=== PATIENT | male | born 1955 | race Asian ===

== ENCOUNTER 2024-11-02 17:29 | Inpatient (IN) | payer MEDICARE, MEDICAID, SELFPAY ==
[2024-11-02] VITALS (42 sets, daily range): BP systolic 125–244; BP diastolic 70–190; PULSE 60–147; RESP 15–48; TEMP 35.6; O2SAT 97–100; BMI 28.3
--- NOTE | 2024-11-02 17:31 | PC.NURSE ---
PT BROUGHT IN BY EMS A STAT MEDICAL FOR ALTERED MENTAL STATUS. PER EMS FAMILY CALLED DUE TO PT BECOMING CONFUSED, COMPLAINED OF DIZZINESS AND VOMITING WHILE TAKING A SHOWER. ESTIMATED LAST KNOW WELL BY EMS WAS 1645. EMS STATED THAT PT WAS INITIALLY A GCS OF 13 ON THEIR ARRIVAL AND BECAME A GCS OF 3. PT WAS GIVEN NARCAN IN ROUTE WITH NO IMPROVEMENT OF MENTAL STATUS. BP WAS ELEVATED IN ROUTE PER EMS AT 212/76. ON ARRIVAL PT IS NON VERBAL BUT IS MOVING HIS ARMS AROUND AND BEGAN DRY HEAVING. DR GILL AT BEDSIDE.
--- NOTE | 2024-11-02 17:34 | XR_ITS ---
Examination: CT brain head without contrast. 2-D sagittal coronal reconstructions Date and time of exam:November 02, 2024 1759 hrs. Indications: Stroke alert, onset focal neurologic deficit today CTDI: vol (mGy):51.9 DLP: (mGycm):1029 Technique: Multiple CT axial sections of the brain have been obtained, 5 mm slice thickness. Contrast has not been administered. 2-D sagittal, coronal reconstructions have been obtained Low dose protocols were performed. One or more of the following dose reduction techniques were used; automated exposure control, adjustment of the mA and/or KV according to patient size, use of iterative reconstruction technique. Findings: No significant ventricular enlargement. 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 No mass effect or midline shift Basal cisterns are not remarkable. Fourth ventricle is midline. Cranial vault intact. Impression: Negative for acute hemorrhage, mass effect or midline shift
[2024-11-02] MEDS: ETOMIDATE INJ 2 MG/ML VIAL 10 ML 20 MG IVP (17:38)
[2024-11-02] MEDS: ROCURONIUM INJ 10 MG/ML VIAL 10 ML 70 MG IVP (17:38)
--- NOTE | 2024-11-02 17:38 | XR_ITS ---
Examination: AP chest single view Technique: AP portable supine chest single view Indications: Stroke alert, altered mental status, hypoxic respiratory failure, postintubation Exam date and time: November 02, 2024 1741 hrs. Findings: Mild prominence of ventricle Mild to moderate vascular congestion. Endotracheal tube tip 25 mm above radha. Orogastric tube in the stomach satisfactory position No aspiration pneumonia or pulmonary edema Impression: Endotracheal tube tip 25 mm above radha Mild to moderate vascular congestion No aspiration pneumonia
--- NOTE | 2024-11-02 17:40 | PC.NURSE ---
UNABLE TO PERFORM NIH ON PT DUE TO PT BEING INTUBATED AND SEDATED
--- NOTE | 2024-11-02 17:53 | PC.NURSE ---
ET TUBE PULLED TO 23 AT GUM BY RESPIRATORY PER DR GILL'S ORDERS
--- NOTE | 2024-11-02 17:55 | EDRME_ITS ---
Rapid Medical Screening Exam RME Arrival date/time: 11/02/24 17:29 Chief Complaint: Altered Mental Status Time Seen by Provider: 11/02/24 17:34 Vital signs: Vital Signs Pulse Rate 85 11/02/24 17:29 Respiratory Rate 18 11/02/24 17:29 Blood Pressure 206/162 H 11/02/24 17:29 Pulse Oximetry (%) 100 11/02/24 17:29 Oxygen Delivery Method Oxy Mask 11/02/24 17:29 Oxygen Flow Rate 15 11/02/24 17:29 RME Narrative: Patient stat arrival to the ER obtunded. Patient was coming out of the shower where he noticed severe and profound dizziness. By EMS arrival he was signifi cantly and severely hypertensive and increasingly obtunded. He has got deviation to the right. He is also actively vomiting. Patient was intubated for airway protection and has critically high blood pressures concerning for an intracerebral hemorrhage. He will require stat CT of the brain. And if confirms intracerebral hemorrhage will require aggressive blood pressure management. Signed out to oncoming provider pending head CT, med critical management, and final disposition.
--- NOTE | 2024-11-02 17:55 | PC.NURSE ---
PT BP 222/90. PER DR GILL TAKE PT TO CT PRIOR TO STARTING MEDICATIONS FOR HIGH BP
--- NOTE | 2024-11-02 17:56 | PD.EDADDENDU ---
Emergency Room Addendum Addendum Narrative: Procedure note; endotracheal intubation: Emergent consent due to critical status, altered mental status unable to consent. RSI: Etomidate 20 mg, rocuronium 70 mg with good sedation Using fiberoptic laryngoscopy, full ET tubes complete vocal cords at 100% were visualized and 8 oh tube was seen passing through the vocal cords. Condensation and CO2 color change x 3 thank you. Breath sounds equal bilaterally, no breath sounds in the epigastrium. Tube secured at 24 cm at the lip. Chest x-ray for tube placement is pending. Estimated blood loss: 0 Complications: 0
--- NOTE | 2024-11-02 17:57 | PC.NURSE ---
PT TO CT
[2024-11-02 18:00] LABS: Basophils # (Auto) 0.1 Thou/mm3 (0.0-0.2); Basophils % (Auto) 1 % (0-2.5); Eosinophils # (Auto) 0.9 Thou/mm3 (0.0-0.5); Eosinophils % (Auto) 8 % (0-10); Hematocrit 43.2 % (41.0-53.0); Hemoglobin 14.6 g/dL (13.5-16.0); Immature Granulocytes % (Auto) 1 % (0-0); Immature Granulocytes Auto 0.09 Thou/mm3 (0.00-0.00); Lymphocytes # (Auto) 5.9 Thou/mm3 (1.0-4.8); Lymphocytes % (Auto) 53 % (10-50); Mean Corpuscular HGB Conc 33.8 g/dl (31.0-37.0); Mean Corpuscular Hemoglobin 28.9 pg (25.0-35.0); Mean Corpuscular Volume 86 fL (80-100); Monocytes # (Auto) 0.9 Thou/mm3 (0.0-0.8); Monocytes % (Auto) 8 % (0-12); Neutrophils # (Auto) 3.3 Thou/mm3 (1.8-7.7); Neutrophils % (Auto) 30 % (37-80); Nucleated Red Blood Cell % 0 /100 WBC (0); Platelet Count 248 Thou/mm3 (140-440); RDW Standard Deviation 41.6 fL (35.1-43.9); Red Blood Count 5.05 Miln/mm3 (4.50-5.90); White Blood Count 11.2 Thou/mm3 (3.8-10.6)
[2024-11-02 18:03] LABS: Collection Type, Urine Catheter; Squamous Epithelial Cell,Urine 0 /hpf (0-5)
--- NOTE | 2024-11-02 18:04 | PC.NURSE ---
PT BACK FROM CT
--- NOTE | 2024-11-02 18:06 | PC.NURSE ---
TELE DIVYA SHANNON ON TO SEE PT
--- NOTE | 2024-11-02 18:10 | PC.NURSE ---
PER SON PT WAS FINE PRIOR TO GOING INTO THE SHOWER AT 1610. SON STATES THAT PT WAS IN THE SHOWER AND BEGAN YELLING THAT HE NEEDED HELP. SON STATED THAT PT C/O ABD PAIN AND BEGAN VOMITING AND SEEMED CONFUSED. PT WAS SAT DOWN ON COUCH PER SON AND THEY CALLED EMS AT THAT TIME.
--- NOTE | 2024-11-02 18:10 | PD.EDAMS ---
Altered Mental Status RME/HPI General Chief Complaint: Altered Mental Status Stated Complaint: ALTERED Time Seen by Provider: 11/02/24 17:34 Arrival date/time: 11/02/24 17:29 RME / HPI RME / HPI narrative: Patient stat arrival to the ER obtunded. Patient was coming out of the shower where he noticed severe and profound dizziness. By EMS arrival he was significantly and severely hypertensive and increasingly obtunded. He has got deviation to the right. He is also actively vomiting. Patient was intubated for airway protection and has critically high blood pressures concerning for an intracerebral hemorrhage. He will require stat CT of the brain. And if confirms intracerebral hemorrhage will require aggressive blood pressure management. Signed out to oncoming provider pending head CT, med critical management, and final disposition. ------ Dr. Bhatia?s Main ED Evaluation: 69yo male with pmhx Alzheimer's, DM, HTN, HLD BIBA from home presents to the ED for a chief complaint of AMS. Patient was intubated by the previous ED physician, Dr. Hawk. Patient's son and his state the patient was his usual self when they got home at 1600, reporting he was playing with their kids. Son states the patient went to go shower at [id number], when he heard the patient calling out for help. He found the patient crawling out of the restroom and was complaining of abdominal pain and generalized weakness. Son's states she found vomit in the bathroom. They sat the patient down in a chair and noticed the patient was slumped over to his right side, so they called EMS. Full ROS is unobtainable due to the patient's AMS. Related Data Home Medications ?Medication ?Instructions ?Recorded ?Confirmed metformin 500 mg tablet 500 mg PO DAILY 11/15/19 01/04/21 losartan 100 mg tablet 100 mg PO DAILY 01/04/21 01/04/21 meloxicam 15 mg tablet 7.5 mg PO BID 01/04/21 11/02/24 metoprolol succinate 50 mg 50 mg PO BID 01/04/21 11/02/24 tablet,extended release 24 hr rosuvastatin 5 mg tablet 40 mg PO DAILY 01/04/21 11/02/24 amlodipine 10 mg tablet 10 mg PO QDAY 11/02/24 11/02/24 clonidine HCl 0.1 mg tablet 0.1 mg PO BID 11/02/24 11/02/24 hydralazine 50 mg tablet 50 mg PO QDAY 11/02/24 11/02/24 oxybutynin chloride 5 mg tablet 5 mg PO BID 11/02/24 11/02/24 pantoprazole 40 mg tablet,delayed 40 mg PO QDAY 11/02/24 11/02/24 release Allergies Allergy/AdvReac Type Severity Reaction Status Date / Time No Known Allergies Allergy Verified 01/04/21 05:57 Review of Systems Review of Systems ROS Unobtainable: unobtainable due to medical condition Past Medical History Past Medical History NEUROLOGIC: Positive Alzheimer's Disease; Negative Neurological Disorders or Seizures CARDIAC: Positive Cardiac Disorders, Hypercholesterolemia (TAKES MED) and Hypertension (TAKES MED); Negative Congestive Heart Failure, Edema, Cellulitis or Varicose Veins RESPIRATORY: Negative Chronic Obstructive Pulmonary Disease (COPD), Tuberculosis or Sleep Apnea GASTROINTESTINAL: Negative Gastrointestinal Disorders or Hepatitis GENITOURINARY: Negative Genitourinary Disorders or Renal Disease MUSCULOSKELETAL: Positive Musculoskeletal Disorders and Arthritis ENDOCRINE: Positive Endocrine Disorders and Diabetes Mellitus Type 2 (TAKES PO MED); Negative Diabetes Mellitus Type 1 HEMATOLOGIC: Negative Blood Disorders OTHER HISTORY: Negative Hospitalization, Shingles, Falls, Blood Transfusions, Blood Transfusion Reaction, Anesthesia Reactions, Chemotherapy, Radiation Therapy, Chicken Pox, Measles, Mumps or Cancer Surgical History SURGICAL: Negative Pacemaker Social History SMOKING STATUS: Unknown if ever smoked ED Exam Narrative Physical exam: GENERAL APPEARANCE: patient is unable to participate in the exam due to being intubated VITALS: All vitals were reviewed and the pulse ox is 100% via mechanical ventilation, which is abnormal according to my interpretation. HEENT: Normocephalic, atraumatic; pupils equal, round, reactive to light; EOMI; mucous membranes pink, moist; oropharynx clear NECK: Supple LUNGS: CTABL; no wheezes, no rales, no rhonchi HEART: Regular rate, regular rhythm; no murmurs ABDOMEN: non distended; no rigidity BACK: no CVA tenderness EXTREMITIES: atraumatic; no edema NEUROLOGIC: intubated; paralyzed SKIN: warm, dry, normal color; no rashes Course Course Course Narrative: CXR is ordered for post intubation. 1826: Hydralazine 10mg ordered. 1833: Patient is now heading back to radiology for the CTA. 185: Patient's current blood pressure is 244/105 with a HR in the 120s. Nicardipine drip ordered. Aiming for a systolic blood pressure of 220 until the CTA comes back. 1924: Patient is now beginning to move and is tachycardic in the 140s. Discontinued the nicardipine drip. Propofol ordered. 1938: I spoke with the patient's son regarding our current findings. After having an extensive discussion with the patient's sons, they decided to not have thrombolytics given. Quality Measures Suspected type of Stroke: Unknown at this time Tenecteplase given: Reason(s) TPA not given: Refusal not given stroke Orders Category Date Time Status 24 HR Medical Restraints Q2HR Care 11/02/24 18:[address] Screening NOW Care 11/02/24 18:21 Active Johnson [Urinary Catheter] QS Care 11/02/24 17:43 Active Insert IV NOW Care 11/02/24 18:03 Active Insert NG / OG tube NOW Care 11/02/24 17:44 Active Intubation NOW Care 11/02/24 17:34 Completed Intubation NOW Care 11/02/24 17:46 Completed Miscellaneous Nursing Order NOW Care 11/02/24 19:[address] angio stroke protocol Stat Exams 11/02/24 18:[address] chest abdomen pelvis w Stat Exams 11/02/24 18:[address] head/brain wo con Stat Exams 11/02/24 17:34 Completed XR chest 1V post procedure Stat Exams 11/02/24 17:38 Completed Alcohol, Blood Medical Stat Lab 11/02/24 17:37 Completed Arterial Blood Gas Stat Lab 11/02/24 18:25 Completed CBC Stat Lab 11/02/24 17:37 Completed CMP [Comprehensive Metabolic Panel] Stat Lab 11/02/24 17:37 Completed Drug Screen,Urine Stat Lab 11/02/24 17:52 Completed PT [Prothrombin Time with INR] Stat Lab 11/02/24 17:37 Completed PTT [Partial Thromboplastin Time] Stat Lab 11/02/24 17:37 Completed Urinalysis Stat Lab 11/02/24 17:52 Completed Etomidate Inj [Amidate Inj] Med 11/02/24 17:29 Discontinued 20 mg .ROUTE .STK-MED ONE Etomidate Inj [Amidate Inj] Med 11/02/24 17:34 Discontinued 20 mg IVP X1 ONE Ketamine Inj Med 11/02/24 19:39 Discontinued 145 mg IV X1 ONE Nicardipine/Ns 20Mg Ivpb [Cardene Ivpb] Med 11/02/24 18:56 Active 20 mg in 200 ml IV 5 mg/hr POTASSIUM CHL 10 mEq IVPB [Kcl Ivpb] Med 11/02/24 19:30 Active 10 meq in 100 ml IV Q1H Propofol 1,000 mg Ivpb [Diprivan Ivpb] Med 11/02/24 17:36 Discontinued 1,000 mg in 100 ml IV 5 mcg/kg/min Propofol 1,000 mg Ivpb [Diprivan Ivpb] Med 11/02/24 19:35 Active 1,000 mg in 100 ml IV 5 mcg/kg/min Rocuronium Inj [Zemuron Inj] Med 11/02/24 17:30 Discontinued 100 mg .ROUTE .STK-MED ONE Rocuronium Inj [Zemuron Inj] Med 11/02/24 17:36 Discontinued 70 mg IVP X1 ONE Sodium Chloride Rt Tameka 10% [NS Rt Tameka 10%] Med 11/02/24 17:46 Discontinued 5 ml INH X1 ONE hydrALAZINE INJ [Apresoline Inj] Med 11/02/24 18:26 Discontinued 10 mg IV X1 ONE Volume Ventilator Stat RT 11/02/24 17:46 Active Vital Signs Vital signs: Vital Signs Pulse Rate 85 11/02/24 17:29 Respiratory Rate 18 11/02/24 17:29 Blood Pressure 206/162 H 11/02/24 17:29 Pulse Oximetry (%) 100 11/02/24 17:29 Oxygen Delivery Method Oxy Mask 11/02/24 17:29 Oxygen Flow Rate 15 11/02/24 17:29 Altered Mental Status MDM Narrative MDM Narrative:: Scribe Attestation: 11/02/24 - Karey Lee am scribing for and in the presence of Dr. Bhatia. Patient data External records reviewed:: [facility] previous records (Per chart review, patient has no previous ED visits or admissions to this facility.) Clinical information provided by:: family Social determinants that could affect healthcare access:: none Patient has the following chronic illnesses:: Alzheimer's, HTN, HLD, DMII How is presenting disease/condition affected by chronic disease/condition?: exacerbated by Evaluation data The following diagnostics were reviewed and interpreted by me:: lab results and radiology exam(s) Lab and/or radiology exams considered but not ordered:: none Interpretation Summary: WBC count is elevated at 11.2, Potassium is low at 2.9, Creatinine is slightly low at 1.4, Glucose is 161, UA shows 1+ protein and 1+ glucose, UDS is negative, Blood alcohol is negative, according to my interpretation. [facility] Report Signed Patient: GERARD BORGES. Record#: [id number] Birthdate: 1955 Age/Sex: 69 / M Location: [facility] Attending Dr: Ordering Physician: Cornell Rubalcava NP Date of Service: 11/02/24 Procedure(s): CT head/brain wo con Accession Number(s): [id number] cc: Cornell Rubalcava [employer]LECTROL[employer]TIC DE SCALER; Randy Oliver MD~ Examination: CT brain head without contrast. 2-D sagittal coronal reconstructions Date and time of exam:November 02, 2024 1759 hrs. Indications: Stroke alert, onset focal neurologic deficit today CTDI: vol (mGy):51.9 DLP: (mGycm):1029 Technique: Multiple CT axial sections of the brain have been obtained, 5 mm slice thickness. Contrast has not been administered. 2-D sagittal, coronal reconstructions have been obtained Low dose protocols were performed. One or more of the following dose reduction techniques were used; automated exposure control, adjustment of the mA and/or KV according to patient size, use of iterative reconstruction technique. Findings: No significant ventricular enlargement. 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 No mass effect or midline shift Basal cisterns are not remarkable. Fourth ventricle is midline. Cranial vault intact. Impression: Negative for acute hemorrhage, mass effect or midline shift Dictated By: Randy Oliver MD Signed By: <Electronically signed by Randy Oliver MD in [place]> 11/02/24 1808 -------- [facility] Report Signed Patient: GERARD BORGES [employer]. Record#: [id number] Birthdate: 1955 Age/Sex: 69 / M Location: [facility] Attending Dr: Ordering Physician: Smith Hawk MD Date of Service: 11/02/24 Procedure(s): XR chest 1V post procedure Accession Number(s): [id number] cc: Smith Hawk MD; Randy Oliver MD~ Examination: AP chest single view Technique: AP portable supine chest single view Indications: Stroke alert, altered mental status, hypoxic respiratory failure, postintubation Exam date and time: November 02, 2024 1741 hrs. Findings: Mild prominence of ventricle Mild to moderate vascular congestion. Endotracheal tube tip 25 mm above radha. Orogastric tube in the stomach satisfactory position No aspiration pneumonia or pulmonary edema Impression: Endotracheal tube tip 25 mm above radha Mild to moderate vascular congestion No aspiration pneumonia Dictated By: Randy Oliver MD Signed By: <Electronically signed by Randy Oliver MD in OV> 11/02/240 [facility] Report Signed Patient: GERARD BORGES. Record#: [id number] Birthdate: 1955 Age/Sex: 69 / M Location: [facility] Attending Dr: Ordering Physician: Erasmo Irene MD Date of Service: 11/02/24 Procedure(s): CT angio stroke protocol Accession Number(s): [id number] cc: Randy Oliver MD; Madyson Gamboa MD; Erasmo Irene MD~ Examination: CTA carotids with intravenous contrast CTA brain, head with intravenous contrast. 2-D sagittal, coronal reconstructions. 3-D reconstructions. Exam date and time: November 02, 2024 1832 hrs. Indications: Stroke alert, onset focal neurologic deficit today CTDI: vol (mGy) 15.05 DLP: (mGycm) 110 Technique: Multiple CTA axial brain, head carotid images post intravenous contrast injection 75 cc [id number] 2-D sagittal, coronal reconstructions. 3-D reconstructions, 3-D post processing including vascular maximum intensity projection images. Low dose protocols were performed. One or more of the following dose reduction techniques were used; automated exposure control, adjustment of the mA and/or KV according to patient size, use of iterative reconstruction technique. Findings: Origin right internal carotid artery 30-50% stenosis Proximal left internal carotid artery 10-30% stenosis Dominant right vertebral artery with no critical stenoses Significant calcification intracranial vertebral arteries, 50% stenosis left intracranial vertebral artery axial image 94 Basilar artery does fill, 80% plus stenosis right posterior cerebral artery junction P1 P2 segments Moderate calcification juxtasellar internal carotid arteries with bilateral 40-60% stenoses No large vessel occlusions involving M1 segments middle cerebral arteries are trifurcation vessels as well as anterior cerebral arteries Impression: 30-50% stenosis origin right internal carotid artery 10-30% stenosis proximal 15 mm left internal carotid artery 50% stenosis left intracranial vertebral artery 80% plus stenosis right posterior cerebral artery junction P1 P2 segments Bilateral 40-60% stenoses juxtasellar internal carotid arteries No cerebral large vessel arterial occlusions Dictated By: Randy Oliver MD Signed By: <Electronically signed by Randy Oliver MD in OV> 11/02/241917 [facility] Report Signed Patient: GERARD BORGES. Record#: [id number] Birthdate: 1955 Age/Sex: 69 / M Location: [facility] Attending Dr: Ordering Physician: Mike Bhatia MD Date of Service: 11/02/24 Procedure(s): CT chest abdomen pelvis w Accession Number(s): [id number] cc: Randy Oliver MD; Madyson Gamboa MD; Mike Bhatia MD~ Examination: CT chest with intravenous contrast CT abdomen with intravenous contrast CT pelvis with intravenous contrast 2-D coronal and sagittal reconstructions Time of exam: November 02, 2024 at 1832 hrs. Indications: Altered mental status, obtundation, nausea vomiting today, hypoxic respiratory failure CTDI: vol (mGy) : 13.5 DLP: (mGycm): 956 Technique: Multiple axial images of the chest, abdomen and pelvis with intravenous contrast, 3.0 mm slice thickness. Images obtained post intravenous injection Isovue 370 60 cc. 2-D sagittal and coronal reconstructions. Low dose protocols were performed. One or more of the following dose reduction techniques were used; automated exposure control, adjustment of the mA and/or KV according to patient size, use of iterative reconstruction technique. Findings: AP dimension ascending thoracic aorta 3.6 cm no thoracic aortic dissection No pulmonary artery emboli noted on this non-CTA study Endotracheal tube tip 26 mm above radha No paratracheal tracheobronchial or bronchopulmonary adenopathy Moderate calcification left anterior descending left circumflex coronary arteries Mild enlargement left atrium left ventricle Mild pneumonia both bases with minimal bilateral pleural disease Multiple subcentimeter low-density liver lesions, likely cysts No intrahepatic biliary tract dilatation Contracted gallbladder Spleen is not enlarged Orogastric tube in the stomach No extrahepatic biliary tract dilatation Normal pancreas Multicystic kidney disease, calcification no wall of one of the smaller right renal cyst No hydronephrosis Right renal arterial calcification Mild dilatation of the renal collecting systems and ureters without ureteral calculi Heavy abdominal aortic calcification no aneurysmal dilatation 9 mm fat-containing umbilical hernia Normal appendix No bowel obstruction or diverticulitis Normal seminal vesicles AP prostate dimension 3.6 cm Urinary Johnson catheter Urinary bladder wall shows irregular thickening up to 11 mm Severe osteopenia Advanced disc narrowing L2-L3 Manubrium, body of the sternum ribs appear intact Axial image 1 suspicious for fracture of the body of the left scapula 13 mm sclerotic focus posterior left T9 vertebral body, 5 mm sclerotic focus manubrium Healed proximal left femur fracture Impression: Negative for pulmonary artery emboli Tracheal tube tip 3.6 cm above radha Mild bibasilar pneumonia, consider aspiration pneumonia Multicystic liver kidney disease Mild dilatation bilateral renal calyces and ureters, consider urinary tract infection, vesicoureteral reflux Irregular urinary bladder wall thickening up to 11 mm, cystitis would be included in the differential, early bladder cancer not excluded, clinical correlation follow-up recommended Axial image 1 suspicious for fracture body of the left scapula, recommend left shoulder films follow-up 13 mm sclerotic focus posterior left T9 vertebral body, 5 mm sclerotic focus manubrium, consider elective MRI thoracic spine follow-up pre and postcontrast to exclude osteoblastic metastatic disease Dictated By: Randy Oliver MD Signed By: <Electronically signed by Randy Oliver MD in OV> 11/02/241934 Medications / Prescriptions Medications or Prescriptions considered but not ordered:: none Medication administrations:: Medication Administration History Nicardipine/Sodium Chloride (Cardene Ivpb) 20 mg in 200 mls @ 50 mls/hr IV .Q4H PRN; Protocol PRN Reason: PER PROTOCOL Stop: 12/02/24 18:55 Last Admin: 11/02/24 19:02 Dose: 5 mg/hr, 50 mls/hr Documented By: NAT Potassium Chloride (Kcl Ivpb) 10 meq in 100 mls @ 100 mls/hr IV Q1H VANESSA Stop: 11/02/24 21:29 Last Admin: 11/02/24 19:52 Dose: 100 mls/hr Documented By: NAT Propofol (Diprivan Ivpb) 1,000 mg in 100 mls @ 2.177 mls/hr IV .Q24H PRN; Protocol PRN Reason: PER PROTOCOL Stop: 12/02/24 17:35 Last Admin: 11/02/24 19:32 Dose: 5 mcg/kg/min, 2.177 mls/hr Documented By: NAT Co-signed By: CVL Discontinued Medications Etomidate (Etomidate Inj 2 Mg/Ml Vial 10 Ml) 20 mg IVP X1 ONE Stop: 11/02/24 17:35 Last Admin: 11/02/24 17:38 Dose: 20 mg Documented By: DO Etomidate (Etomidate Inj 2 Mg/Ml Vial 10 Ml) Confirm Administered Dose 20 mg .ROUTE .STK-MED ONE Stop: 11/02/24 17:30 Last Admin: 11/02/24 17:41 Dose: Not Given Documented By: DO Non-Admin Reason: Override Medication Hydralazine HCl (Hydralazine Inj 20 Mg/Ml Vial) 10 mg IV X1 ONE Stop: 11/02/24 18:27 Last Admin: 11/02/24 18:31 Dose: 10 mg Documented By: Propofol (Diprivan Ivpb) 1,000 mg in 100 mls @ 1.905 mls/hr IV .Q24H PRN; Protocol PRN Reason: PER PROTOCOL Stop: 12/02/24 17:35 Ketamine HCl (Ketamine 50 Mg/Ml Vial 10 Ml) 145 mg 2 mg/kg (145 mg) IV X1 ONE Stop: 11/02/24 19:40 Last Admin: 11/02/24 19:52 Dose: 145 mg Documented By: NAT Rocuronium [place] (Rocuronium Inj 10 Mg/Ml Vial 10 Ml) 70 mg IVP X1 ONE Stop: 11/02/24 17:37 Last Admin: 11/02/24 17:38 Dose: 70 mg Documented By: DO Co-signed By: BERNABE Rocuronium [place] (Rocuronium Inj 10 Mg/Ml Vial 10 Ml) Confirm Administered Dose 100 mg .ROUTE .STK-MED ONE Stop: 11/02/24 17:31 Last Admin: 11/02/24 17:41 Dose: Not Given Documented By: DO Non-Admin Reason: Override Medication Sodium Chloride (Sodium Chloride Rt 10% 15 Ml Nebu) 5 ml INH X1 ONE Stop: 11/02/24 17:47 Last Admin: 11/02/24 18:32 Dose: Not Given Documented By: DO Non-Admin Reason: Cancelled by Provider see above Consultations Consultation(s) initiated? (list below): Yes Consultation #1 (Physician, Specialty, Details): Discussed case with [Dr. Irene from [[facility]] regarding [consultation]. Discussed patients ED course, exam findings, labs, and radiology results. States the patient is not a tPA candidate due to the patient's unknown LKWT. They ordered the CTA. Time: 18:20 Consultation #2 (Physician, Specialty, Details): Discussed case with [Dr. Irene from [[facility]] regarding [consultation]. They reviewed the CTA and agree with the radiologist's reading. Sees no evidence of ischemic stroke or cerebellar lesions. Feels that since the patient is tachycardic, he feels that this is a systemic non-neurological problem. Time: 19:33 Consultation #3 (Physician, Specialty, Details): Discussed case with [Dr. Echols - ICU resident] from Hospitalist service regarding admission. Discussed patients ED course, exam findings, labs, and radiology results. The Hospitalist [agrees] to accept the patient for admission. Time: 19:56 Diagnosis Differential diagnosis altered mental status: altered mental status and other (CVA, TIA, ICH, hypertensive urgency, hypertensive emergency) Most likely diagnosis given after review of the tests above:: see below Admission Indicated Admission indicated?: indicated Admission Request Was there a request for admission?: Yes Admission Attestation Admission request attestation: Discussed case with [] from Hospitalist service regarding admission. Discussed patients ED course, exam findings, labs, and radiology results. The Hospitalist [agrees,declines] to accept the patient for admission. Disposition Plan Disposition Plan: Admit Critical Care Time Critical Care Time Critical Care Time: Yes Total Critical Care Time (min.): 75 Attestation: The high probability of sudden, clinically significant deterioration in the patient?s condition required the highest level of my preparedness to intervene urgently. The services I provided to this patient were to treat and/or prevent clinically significant deterioration. Services included the following: chart data review, reviewing nursing notes and/or old charts, documentation time, net developer consultant collaboration regarding findings and treatment options, medication orders and management, direct patient care, vital sign assessments and ordering, interpreting and reviewing diagnostic studies and lab tests. Aggregate critical care time includes only time during which I was engaged in work directly related to the patient?s care, as described above, whether at bedside or elsewhere in the Emergency Department. It did not include time spent performing other reported procedures or the services of residents, students, nurses or physician assistants. Discharge Plan Plan Patient Disposition: Admit Acute Care w/in Hospital Prescriptions/Referrals Prescriptions/Med Rec: No Action metformin 500 mg Tablet 500 mg PO DAILY meloxicam 15 mg tablet 7.5 mg PO BID losartan 100 mg tablet 100 mg PO DAILY rosuvastatin 5 mg tablet 40 mg PO DAILY metoprolol succinate 50 mg Tablet Extended Release 24 Hr 50 mg PO BID amlodipine 10 mg tablet 10 mg PO QDAY clonidine HCl 0.1 mg Tablet 0.1 mg PO BID pantoprazole 40 mg Tablet,Delayed Release (Dr/Ec) 40 mg PO QDAY hydralazine 50 mg Tablet 50 mg PO QDAY oxybutynin chloride 5 mg Tablet 5 mg PO BID Referrals: Madyson Gamboa MD [Primary Care Provider] - In 1 week Problem List Clinical Impression: Altered mental status, Hypokalemia, Obtunded, Vomiting Patient/Caregiver Discharge Instructions Print Language: [place]ese Stand Alone Forms: Marisol Award Info., Patient Portal Info Letter
[2024-11-02 18:14] LABS: Partial Thromboplastin Time 21.8 Seconds (22.0-36.0); Prothrombin Time 10.5 Seconds (9.0-12.2)
--- NOTE | 2024-11-02 18:15 | PC.NURSE ---
SON SPEAKING WITH TELE NEURO AT THIS TIME
[2024-11-02 18:17] LABS: Bilirubin,Urine Negative (Negative); Blood,Urine Negative (Negative); Clarity,Urine Clear (Clear/Hazy); Color,Urine Colorless (Lt Yel-Yel); Glucose, Urine 1+ (Negative); Ketones,Urine Negative (Negative); Leukocyte Esterase,Urine Negative (Negative); Nitrite,Urine Negative (Negative); Protein,Urine 1+ (Neg - Trace); RBC,Urine 1 /hpf (0-3); Specific Gravity,Urine 1.011 (1.001-1.035); Urobilinogen,Urine Negative mg/dL (0.0-1.0); WBC,Urine 1 /hpf (0-5)
--- NOTE | 2024-11-02 18:21 | XR_ITS ---
Examination: CT chest with intravenous contrast CT abdomen with intravenous contrast CT pelvis with intravenous contrast 2-D coronal and sagittal reconstructions Time of exam: November 02, 2024 at 1832 hrs. Indications: Altered mental status, obtundation, nausea vomiting today, hypoxic respiratory failure CTDI: vol (mGy) : 13.5 DLP: (mGycm): 956 Technique: Multiple axial images of the chest, abdomen and pelvis with intravenous contrast, 3.0 mm slice thickness. Images obtained post intravenous injection Isovue 370 60 cc. 2-D sagittal and coronal reconstructions. Low dose protocols were performed. One or more of the following dose reduction techniques were used; automated exposure control, adjustment of the mA and/or KV according to patient size, use of iterative reconstruction technique. Findings: AP dimension ascending thoracic aorta 3.6 cm no thoracic aortic dissection No pulmonary artery emboli noted on this non-CTA study Endotracheal tube tip 26 mm above radha No paratracheal tracheobronchial or bronchopulmonary adenopathy Moderate calcification left anterior descending left circumflex coronary arteries Mild enlargement left atrium left ventricle Mild pneumonia both bases with minimal bilateral pleural disease Multiple subcentimeter low-density liver lesions, likely cysts No intrahepatic biliary tract dilatation Contracted gallbladder Spleen is not enlarged Orogastric tube in the stomach No extrahepatic biliary tract dilatation Normal pancreas Multicystic kidney disease, calcification no wall of one of the smaller right renal cyst No hydronephrosis Right renal arterial calcification Mild dilatation of the renal collecting systems and ureters without ureteral calculi Heavy abdominal aortic calcification no aneurysmal dilatation 9 mm fat-containing umbilical hernia Normal appendix No bowel obstruction or diverticulitis Normal seminal vesicles AP prostate dimension 3.6 cm Urinary Johnson catheter Urinary bladder wall shows irregular thickening up to 11 mm Severe osteopenia Advanced disc narrowing L2-L3 Manubrium, body of the sternum ribs appear intact Axial image 1 suspicious for fracture of the body of the left scapula 13 mm sclerotic focus posterior left T9 vertebral body, 5 mm sclerotic focus manubrium Healed proximal left femur fracture Impression: Negative for pulmonary artery emboli Tracheal tube tip 3.6 cm above radha Mild bibasilar pneumonia, consider aspiration pneumonia Multicystic liver kidney disease Mild dilatation bilateral renal calyces and ureters, consider urinary tract infection, vesicoureteral reflux Irregular urinary bladder wall thickening up to 11 mm, cystitis would be included in the differential, early bladder cancer not excluded, clinical correlation follow-up recommended Axial image 1 suspicious for fracture body of the left scapula, recommend left shoulder films follow-up 13 mm sclerotic focus posterior left T9 vertebral body, 5 mm sclerotic focus manubrium, consider elective MRI thoracic spine follow-up pre and postcontrast to exclude osteoblastic metastatic disease
[2024-11-02 18:23] LABS: Alanine Aminotransferase 22 U/L (10-49); Albumin/Globulin Ratio 1.7 (1.2-2.2); Alcohol, Blood Medical < 3.0 mg/dL (0-10.0); Alkaline Phosphatase 86 U/L (46-116); Anion Gap 12 (7-16); Aspartate Amino Transferase 14 U/L (0-34); BUN/Creatinine Ratio 11 Ratio (12-20); Bilirubin,Total 0.5 mg/dL (0.3-1.2); Blood Urea Nitrogen 16 mg/dL (9-23); Calcium 9.8 mg/dL (8.3-10.6); Calcium (Corrected) 9.8 mg/dL (8.5-10.1); Carbon Dioxide 22.7 mMol/L (20.0-31.0); Chloride 103 mMol/L (98-107); Creatinine (Component) 1.4 mg/dL (0.6-1.3); Estimated Creatinine Clearance 43.2 mL/min (>60); Glucose 161 mg/dL (74-106); Osmolality,Calculated 279 (275-295); Potassium 2.9 mMol/L (3.4-5.1); Sodium 138 mMol/L (136-145); eGFR 54 See Note
[2024-11-02 18:24] LABS: Amphetamine/Methamp Scrn,U Negative (Negative); Barbiturate Screen,Urine Negative (Negative); Benzodiazepines Screen,Urine Negative (Negative); Benzoylecgonine Screen, Ur Negative (Negative); Fentanyl Screen,Urine Negative (Negative); Opiate Screen,Urine Negative (Negative); THC Screen,Urine Negative (Negative)
--- NOTE | 2024-11-02 18:26 | PC.NURSE ---
PER DR MAHER GIVE PT HYDRALAZINE 10 MG AT TH IS TIME.ER DR MAHER HE WANTS PT'S SYSTOLIC AT 220
[2024-11-02 18:29] LABS: Base Excess -1 (-3-3); HCO3 26 mEq/L (20-26); Inspired Oxygen, FIO2 100 %; O2 Saturation 100 % (91-98); PCO2 47 mmHg (32.0-48.0); PO2 410 mmHg (83-108); pH, Arterial 7.35 (7.35-7.45)
[2024-11-02 18:31] LABS: Allen Test Not Performed; Puncture Site Right Radial
[2024-11-02] MEDS: hydrALAZINE INJ 20 MG/ML VIAL 10 MG IV (18:31)
--- NOTE | 2024-11-02 18:35 | PC.NURSE ---
PT TO CT
--- NOTE | 2024-11-02 18:50 | ESCONSULT_ITS ---
Tele Neuro Consultation Consultation Date 11/02/24 Most Recent Vital Signs Last Vital Signs Pulse 92 11/02/24 18:31 Resp 18 11/02/24 17:56 BP 241/93 H 11/02/24 18:31 Pulse Ox 99 11/02/24 18:28 O2 Del Method Mechanical Ventilation 11/02/24 17:56 O2 Flow Rate 15 11/02/24 17:29 FiO2 100 11/02/24 18:28 Laboratory-Coagulation Panel PT 10.5 Seconds (9.0-12.2) 11/02/24 17:37 INR 1.0 (0.9-1.3) 11/02/24 17:37 APTT 21.8 Seconds (22.0-36.0) L 11/02/24 17:37 Consultation Narrative [facility] Tele[facility]urology Consult [facility] Patient Name:???Chuck Garcia Date of :???1955 Identification Number:??? Date of Service:???11/02/2024 18:01:08 Diagnosis:?I63.89 - Cerebrovascular accident (CVA) due to other mechanism (HCCC) ?R41.89 - Unresponsive Impression: ?69 yo man presenting for dizziness, vomiting, weakness. Certainly a posterior stroke is possible though without a clear time LKN as well as complaints of abd pain, I think we cannot give thrombolytics. I ordered a CTA H/N to assess the posterior circulation particularly the basilar artery. This is pending. I would recommend allowing permissive hypertension up to [address] on aspirin if no contraindications. Our recommendations are outlined below. Recommendations: ? Stroke/Telemetry Floor ? Neuro Checks ? Bedside Swallow Eval ? DVT Prophylaxis ? IV Fluids, Normal Saline ? Head of Bed 30 Degrees ? Euglycemia and Avoid Hyperthermia (PRN Acetaminophen) ? Initiate or continue Aspirin 81 MG daily Sign Out: ? Discussed with Emergency Department Provider Advanced Imaging: Advanced imaging has been ordered. Results pending. Metrics: Last Known Well: Unknown Dispatch Time: 11/02/2024 18:01:08 Arrival Time: 11/02/2024 17:29:00 Initial Response Time: 11/02/2024 18:03:31Symptoms: dizziness, N/V, abd pain, generalized weakness. Initial patient interaction: 11/02/2024 18:10:22 NIHSS Assessment Completed: 11/02/2024 18:12:46Patient is not a candidate for Thrombolytic. Thrombolytic Medical Decision: 11/02/2024 18:18:23Patient was not deemed candidate for Thrombolytic because of following reasons: LKW outside 4.[address] head showed no acute hemorrhage or acute core infarct. Primary Provider Notified of Diagnostic Impression and Management Plan on: 11/02/2024 18:19:51 History of Present Illness:Patient is a 69 year old Male. Patient was brought by EMS for symptoms of dizziness, N/V, abd pain, generalized weakness. This is a 69 yo man who presented via EMS for apparent dizziness, nausea, vomiting. He called out to his son while he was showering and then crawled out of the bathroom due to the weakness. He was complaining of abd pain as well. Son actually last saw him normal last night. He has a history of HTN, DM. Due to continued vomiting, he was intubated for airway protection. Head CT neg for acute pathology. Quite hypertensive on arrival. Past Medical History: ?Hypertension ?Diabetes Mellitus ?There is no history of Stroke Medications: No Anticoagulant use? No Antiplatelet use Reviewed EMR for current medications Allergies:? NKDA Social History: Smoking: No Family History: There is no family history of premature cerebrovascular disease pertinent to this consultation ROS : 14 Points Review of Systems was performed and was negative except mentioned in HPI. Past Surgical History: There Is No Surgical History Contributory To Today?s Visit NIHSS may not be reliable due to: Patient was intubated and paralyzed Examination: BP(217/94),?Pulse(83), 1A: Level of Consciousness - Postures or Unresponsive?+ 3 1B: Ask Month and Age - Dysarthric/Intubated/ Trauma/Language Barrier?+ 1 1C: Blink Eyes & Squeeze Hands - Performs 0 Tasks?+ 2 2: Test Horizontal Extraocular Movements - Normal?+ 0 3: Test Visual Pagan - No Visual Loss?+ 0 4: Test Facial Palsy (Use Grimace if Obtunded) - Normal symmetry?+ 0 5A: Test Left Arm Motor Drift - No Movement?+ 4 5B: Test Right Arm Motor Drift - No Movement?+ 4 6A: Test Left Leg Motor Drift - No Movement?+ 4 6B: Test Right Leg Motor Drift - No Movement?+ 4 7: Test Limb Ataxia (FNF/Heel-Frazier) - No Ataxia?+ 0 8: Test Sensation - Coma/Unresponsive?+ 2 9: Test Language/Aphasia - Coma/Unresponsive?+ 3 10: Test Dysarthria - Normal?+ 0 11: Test Extinction/Inattention - No abnormality?+ 0 NIHSS Score:?27 Pre-Morbid Modified Emile Scale:0 Points = No symptoms at all Spoke with :?Dr. Bhatia This consult was conducted in real time using interactive audio and video technology. Patient was informed of the technology being used for this visit and agreed to proceed. Patient located in hospital and provider located at home/office setting. Patient is being evaluated for possible acute neurologic impairment and high probability of imminent or life-threatening deterioration. I spent total of 30 minutes providing care to this patient, including time for face to face visit via telemedicine, review of medical records, imaging studies and discussion of findings with providers, the patient and/or family. Dr Erasmo Irene [facility] For Inpatient follow-up with [facility] physician please call [facility] at . As we are not an outpatient service for any post hospital discharge needs please contact the hospital for assistance. If you have any questions for the [facility] physicians or need to reconsult for clinical or diagnostic changes please contact us via [facility] at .
[2024-11-02] MEDS: NICARDIPINE/NS 20MG IVPB 20 MG/200 ML BAG 50 MG IV (19:02)
[2024-11-02] MEDS: PROPOFOL 1,000 MG IVPB 1,000 MG/100 ML VIAL 2.177 MG IV (19:32)
[2024-11-02] MEDS: KETAMINE 50 MG/ML VIAL 10 ML 145 MG IV (19:52)
[2024-11-02] MEDS: POTASSIUM CHL 10 mEq IVPB 10 MEQ/100 ML BAG 100 MEQ IV ×2 (19:52→20:37)
[2024-11-02] MEDS: MIDAZOLAM INJ 1 MG/ML VIAL 2 ML 2 MG IV (20:19)
--- NOTE | 2024-11-02 20:40 | PC.RT ---
the pt has no sputum at this time to collect.
[2024-11-02] MEDS: fentaNYL 2,500 MCG/250 ML BAG 2,500 MCG/250 ML BAG 10 MCG IV (20:48)
[2024-11-02] MEDS: PANTOPRAZOLE INJ 40 MG VIAL IVP (20:49)
--- NOTE | 2024-11-02 21:12 | PD.RESHP ---
Documentation for date of: 11/02/24 [facility] History of Present Illness Chief complaint: AMS History of present illness: 69 yo M with pmhx of HTN, DMT2, HLD, Alzheimer's presented to the ED due to AMS. Unable to obtain history from patient due to being sedated and intubated. History taken from sons at bedside. Per family, patient was playing with his grandchildren, then he went to take a bath, all of a sudden family heard the patient screaming. Once the family arrived at the bathroom patient was on the floor complaining of dizziness. EMS arrived and noted that the patient patient severely hypertensive and obtunded. Upon arrival to the ED patient was obtunded. Patient was intubated for airway protection. Teleneuro was consulted in the ED. They had concerns for posterior stroke. CT head was negative. CTA H/N showed 30-50% stenosis origin right internal carotid artery. 10-30% stenosis proximal 15 mm left internal carotid artery. 50% stenosis left intracranial vertebral artery. 80% plus stenosis right posterior cerebral artery junction P1 P2 segments. Bilateral 40-60% stenoses juxtasellar internal carotid arteries. No cerebral large vessel arterial occlusions. See teleneuro reccs on the consult note. Patient will be admitted to the ICU. Review of Systems Review of Systems ROS Unobtainable: due to endotracheal tube Exam Vital Signs Pulse Resp BP Pulse Ox O2 Del Method O2 Flow Rate FiO2 119 H 15 167/94 H 97 Mechanical Ventilation 15 100 11/02/24 20:16 11/02/24 20:16 11/02/24 20:16 11/02/24 20:16 11/02/24 17:56 11/02/24 17:29 11/02/24 18:28 Narrative Exam Constitutional: sedated and intubated HEENT: NC/AT, PERRLA, oral mucosa moist, neck supple CVS: RRR, S1-S2 present, no murmurs RESP: CTAB GI: non distended, non tender to palpation, NBS MSK: full ROM, no peripheral edema, peripheral pulses present Skin: warm and dry, no rashes Neuro: qualitative field project manager II-XII grossly intact. Sensation grossly intact. Results: Labs 11/02/24 17:37 11/02/24 17:37 Labs: Short CBC 11/02/24 Range/Units 17:37 WBC 11.2 H (3.8-10.6) Thou/mm3 Hgb 14.6 (13.5-16.0) g/dL Hct 43.2 (41.0-53.0) % Plt Count 248 (140-440) Thou/mm3 BMP 11/02/24 17:37 Sodium 138 Potassium 2.9 L Chloride 103 Carbon Dioxide 22.7 BUN 16 Creatinine 1.4 H Glucose 161 H Calcium 9.8 Liver Function 11/02/24 Range/Units 17:37 Total Bilirubin 0.5 (0.3-1.2) mg/dL AST 14 (0-34) U/L ALT 22 (10-49) U/L Alkaline Phosphatase 86 (46-116) U/L Albumin 5.0 H (3.4-4.8) gm/dL Urine 11/02/24 Range/Units 17:52 Urine Color Colorless A (Lt Yel-Yel) Urine Clarity Clear (Clear/Hazy) Urine pH 7.0 (5.0-7.0) Ur Specific [place] 1.011 (1.001-1.035) Urine Protein 1+ A (Neg - Trace) Urine Glucose (UA) 1+ A (Negative) ABG Interpretation ABG results: 11/02/24 18:25 ABG pH 7.35 ABG pCO2 47 ABG pO2 410 H ABG HCO3 26 ABG O2 Saturation 100 H ABG Base Excess -1 Quality Measures Quality Measures stroke Suspected type of Stroke: Unknown at this time Last known well (date): 11/02/24 Last known well (time): 16:10 Tenecteplase given: Reason(s) Tenecteplase not given: Refusal not given Rehab services: PT evaluation ordered VTE Prophylaxis: not ordered Antithrombotic by day 2:: not indicated (describe) (still day 1) Statin ordered: not ordered Anticoagulation ordered for A-fib or flutter (current or hx): refused Advance care planning discussed with:: patient and child Medications Home Medications and Allergies Home Medications ?Medication ?Instructions ?Recorded ?Confirmed ?Type meloxicam 15 mg tablet 7.5 mg PO BID 01/04/21 11/02/24 History metoprolol succinate 50 mg 50 mg PO BID 01/04/21 11/02/24 History tablet,extended release 24 hr rosuvastatin 5 mg tablet 40 mg PO DAILY 01/04/21 11/02/24 History amlodipine 10 mg tablet 10 mg PO QDAY 11/02/24 11/02/24 History clonidine HCl 0.1 mg tablet 0.1 mg PO BID 11/02/24 11/02/24 History hydralazine 50 mg tablet 50 mg PO QDAY 11/02/24 11/02/24 History oxybutynin chloride 5 mg tablet 5 mg PO BID 11/02/24 11/02/24 History pantoprazole 40 mg tablet,delayed 40 mg PO QDAY 11/02/24 11/02/24 History release Allergies Allergy/AdvReac Type Severity Reaction Status Date / Time No Known Allergies Allergy Verified 01/04/21 05:57 Visit Medications Acetaminophen (Acetaminophen 325 Mg Tablet) 650 mg PO Q4HR PRN PRN Reason: PAIN SCALE 1-3 (mild Stop: 12/02/24 20:26 Acetaminophen (Acetaminophen Supp 650 Mg Supp) 650 mg GA Q4HR PRN PRN Reason: PAIN SCALE 1-3 (mild Stop: 12/02/24 20:26 Aspirin (Aspirin Ec 81 Mg Tabec) 81 mg PO QDAY VANESSA Stop: 12/02/24 20:59 Dextrose (Dextrose 50%-Water Inj 50 Ml Syringe) 25 ml IV Q15MIN PRN PRN Reason: BG 50-70 responsive npo pt Stop: 12/02/24 20:45 Dextrose (Dextrose 50%-Water Inj 50 Ml Syringe) 50 ml IV Q15MIN PRN PRN Reason: BG <50 OR BG <70 & pt unresponsive Stop: 12/02/24 20:45 Glucagon (Glucagon Inj 1 Mg Vial) 1 mg IM Q15MIN PRN PRN Reason: BG <70, and no IV access Nicardipine/Sodium Chloride (Cardene Ivpb) 20 mg in 200 mls @ 50 mls/hr IV .Q4H PRN; Protocol PRN Reason: PER PROTOCOL Stop: 12/02/24 18:55 Last Titration: 11/02/24 19:34 Dose: 0 mg/hr, 0 mls/hr Potassium Chloride (Kcl Ivpb) 10 meq in 100 mls @ 100 mls/hr IV Q1H VANESSA Stop: 11/02/24 21:29 Last Admin: 11/02/24 20:37 Dose: 100 mls/hr Propofol (Diprivan Ivpb) 1,000 mg in 100 mls @ 2.177 mls/hr IV .Q24H PRN; Protocol PRN Reason: PER PROTOCOL Stop: 12/02/24 17:35 Last Titration: 11/02/24 20:35 Dose: 14.93 mcg/kg/min, 6.5 mls/hr Fentanyl Citrate (Sublimaze Inj 2,500 Mcg/250 Ml Bag) 2,500 mcg in 250 mls @ 10 mls/hr IV .Q24H PRN; Protocol PRN Reason: PER PROTOCOL Stop: 11/07/24 20:18 Last Admin: 11/02/24 20:48 Dose: 100 mcg/hr, 10 mls/hr Fentanyl Citrate (Sublimaze Inj 2,500 Mcg/250 Ml Bag) 2,500 mcg in 250 mls @ 2.5 mls/hr IV .Q24H PRN; Protocol PRN Reason: PER PROTOCOL Stop: 11/07/24 20:28 Piperacillin/Tazobactam/Dextrose (Zosyn) 3.375 gm in 50 mls @ 12.5 mls/hr IV Q8HR [facility] Stop: 11/10/24 05:59 Vancomycin/Sodium Chloride (Vancomycin/Ns 1 Gm Ivpb) 200 mls @ 120 mls/hr IV X1 ONE Stop: 11/02/24 22:39 Piperacillin/Tazobactam/Dextrose (Zosyn) 3.375 gm in 50 mls @ 100 mls/hr IV X1 ONE Stop: 11/02/24 21:29 Insulin Human Lispro (Insulin Lispro (Admelog) 1 Unit/0.01 Ml Unit) 0 unit [facility]; Protocol Stop: 12/02/24 20:59 Pantoprazole Sodium (Pantoprazole Inj 40 Mg Vial) 40 mg IVP QDAY [facility] Stop: 12/02/24 20:29 Last Admin: 11/02/24 20:49 Dose: 40 mg Pharmacy Consult (Vancomycin Pharmacy To Dose 1 Each Each) 1 each IV QDAY [facility] Stop: 12/02/24 20:44 Discontinued Medications Etomidate (Etomidate Inj 2 Mg/Ml Vial 10 Ml) 20 mg IVP X1 ONE Stop: 11/02/24 17:35 Last Admin: 11/02/24 17:38 Dose: 20 mg Hydralazine HCl (Hydralazine Inj 20 Mg/Ml Vial) 10 mg IV X1 ONE Stop: 11/02/24 18:27 Last Admin: 11/02/24 18:31 Dose: 10 mg Propofol (Diprivan Ivpb) 1,000 mg in 100 mls @ 1.905 mls/hr IV .Q24H PRN; Protocol PRN Reason: PER PROTOCOL Stop: 12/02/24 17:35 Ketamine HCl (Ketamine 50 Mg/Ml Vial 10 Ml) 145 mg 2 mg/kg (145 mg) IV X1 ONE Stop: 11/02/24 19:40 Last Admin: 11/02/24 19:52 Dose: 145 mg Midazolam HCl (Midazolam Inj 1 Mg/Ml Vial 2 Ml) 2 mg IV X1 ONE Stop: 11/02/24 20:16 Last Admin: 11/02/24 20:19 Dose: 2 mg Rocuronium [place] (Rocuronium Inj 10 Mg/Ml Vial 10 Ml) 70 mg IVP X1 ONE Stop: 11/02/24 17:37 Last Admin: 11/02/24 17:38 Dose: 70 mg Sodium Chloride (Sodium Chloride Rt 10% 15 Ml Nebu) 5 ml INH X1 ONE Stop: 11/02/24 17:47 Last Admin: 11/02/24 18:32 Dose: Not Given Assessment & Plan Plan Assessment and plan: ORTHOPEDIC RN: #Acute encephalopathy #Stroke work up Etiology likely 2/2 to hypertensive emergency. Stroke alert on arrival. Sedation due to intubation CT head was negative. CTA H/N showed 30-50% stenosis origin right internal carotid artery. 10-30% stenosis proximal 15 mm left internal carotid artery. 50% stenosis left intracranial vertebral artery. 80% plus stenosis right posterior cerebral artery junction P1 P2 segments. Bilateral 40-60% stenoses juxtasellar internal carotid arteries. No cerebral large vessel arterial occlusions. Plan: -cont versed/fentanyl -Rass -2 -permissive HTN (BP goal <220/110) -ASA 81 mg qd -MRI brain ordered Cardio: #Hypertensive emergency Initial BP on arrival was 241/93 with end organ damage. Patient is on 4 antihypertensive medications Plan: -allow permissive HTN due to stroke w/u -nicardapine gtt if BP >220/110 Pulm: #Acute respiratory failure requiring intubation Airway protection due to GCS of 3 on arrival Plan: -CXR daily -serial ABGs with vent changes as needed GI: stable Renal: #Acute kidney injury Likely secondary to HTN emergency Cr 1.4 on admission (baseline 0.9) Plan: -monitor UOP -control BP -IVF -avoid nephrotoxins if possible Endo: #Hx of T2DM (a1c 6.4% 07/2024)) Controlled, hold home medications Plan: -insulin sliding scale protocol -glucose goal of 140-180 Heme: stable ID: stable Skin/MSK: stable ICU Health maintenance: Mechanical ventilation: ACVC Sedation: versed/fentanyl FEN: NPO DVT ppx: SCDs GI ppx: protonix Johnson: yes IV lines: 2 Central line: none Arterial line: none Code status: FULL code Dispo: admit to ICU due to HTN emergency - Patient's care was discussed with my attending physician, Dr. Dalia Echols MD Internal Medicine PGY-3 Attending Provider Attestation/Addendum I discussed with and supervised the resident physician who took care of this patient. I agree with the assessment and plan as above. 69-year-old male patient with diabetes, hypertension, hyperlipidemia, dementia was admitted for altered mental status associated with severe hypertension. The patient was intubated. GCS was only 3 before intubation according to report. CT scan of the brain showed no acute infarction no bleed no midline shift. Patient is currently on mechanical ventilation. He is arousable to vigorous stimuli. CTA: 30-50% stenosis origin right internal carotid artery 10-30% stenosis proximal 15 mm left internal carotid artery 50% stenosis left intracranial vertebral artery 80% plus stenosis right posterior cerebral artery junction P1 P2 segments Bilateral 40-60% stenoses juxtasellar internal carotid arteries No cerebral large vessel arterial occlusions
[2024-11-02] MEDS: INSULIN LISPRO (AdmeLOG) 1 UNIT/0.01 ML UNIT SC (21:23)
[2024-11-02] MEDS: VANCOMYCIN/NS 1 GM IVPB 200 ML IV (21:38)
[2024-11-02] MEDS: PIPER/TAZO 3.375 GM 3.375 GM/50 ML BAG IV (21:39)
[2024-11-02] MEDS: KETAMINE 50 MG/ML VIAL 10 ML 145 MG IVP (22:14)
--- NOTE | 2024-11-02 22:46 | PC.NURSE ---
REPORT GIVEN TO SARI MULLINS. ALL QUESTIONS ASKED AND ANSWERED. PATIENT TRANSFERRED TO ICU BY STAFF. IVF INFUSING WITHOUT DIFFICULTY. PATIENT REMAINS INTUBATED AND ACCOMPANIED BY RESPIRATORY TO ROOM. NO DISTRESS NOTED ON TRANSFER.
[2024-11-02] MEDS: MIDAZOLAM/NS 100 MG IVPB 100 MG/100 ML BAG IV (23:10)
[2024-11-02] MEDS: fentaNYL 2,500 MCG/250 ML BAG 2,500 MCG/250 ML BAG 15 MCG IV (23:20)
[2024-11-03] VITALS (25 sets, daily range): BP systolic 126–203; BP diastolic 56–97; PULSE 66–105; RESP 15–30; TEMP 36.2–37.1; O2SAT 95–99; BMI 25.9
[2024-11-03 02:08] LABS: Collection Type, Urine Clean Catch; Squamous Epithelial Cell,Urine 0 /hpf (0-5)
[2024-11-03 02:31] LABS: Bilirubin,Urine Negative (Negative); Blood,Urine 3+ (Negative); Clarity,Urine Clear (Clear/Hazy); Color,Urine Lt-Yellow (Lt Yel-Yel); Glucose, Urine Negative (Negative); Ketones,Urine Negative (Negative); Leukocyte Esterase,Urine Negative (Negative); Nitrite,Urine Negative (Negative); PH,Urine 6.5 (5.0-7.0); Protein,Urine 1+ (Neg - Trace); RBC,Urine 148 /hpf (0-3); Specific Gravity,Urine 1.049 (1.001-1.035); Urobilinogen,Urine Negative mg/dL (0.0-1.0); WBC,Urine 27 /hpf (0-5)
[2024-11-03 04:27] LABS: Base Excess -1 (-3-3); HCO3 25 mEq/L (20-26); O2 Saturation 100 % (91-98); PCO2 46 mmHg (32.0-48.0); PO2 164 mmHg (83-108); pH, Arterial 7.35 (7.35-7.45)
[2024-11-03 04:28] LABS: Allen Test Performed/OK; Inspired Oxygen, FIO2 45 %; Puncture Site Right Radial
--- NOTE | 2024-11-03 04:50 | PC.RT ---
fio2 titrated to 30% fio2 per abg results
[2024-11-03] MEDS: PIPER/TAZO 3.375 GM 3.375 GM/50 ML BAG IV (05:16)
[2024-11-03 06:18] LABS: Glucose Estimated Average 148 mg/dL (80-131); Hemoglobin A1C 6.8 % Hgb (4.8-6.0)
[2024-11-03 06:46] LABS: Basophils # (Auto) 0.1 Thou/mm3 (0.0-0.2); Basophils % (Auto) 1 % (0-2.5); Eosinophils # (Auto) 0.1 Thou/mm3 (0.0-0.5); Eosinophils % (Auto) 1 % (0-10); Hematocrit 40.3 % (41.0-53.0); Hemoglobin 13.7 g/dL (13.5-16.0); Immature Granulocytes % (Auto) 0 % (0-0); Immature Granulocytes Auto 0.05 Thou/mm3 (0.00-0.00); Lymphocytes # (Auto) 1.4 Thou/mm3 (1.0-4.8); Lymphocytes % (Auto) 9 % (10-50); Mean Corpuscular Hemoglobin 29.1 pg (25.0-35.0); Mean Corpuscular Volume 86 fL (80-100); Monocytes # (Auto) 1.1 Thou/mm3 (0.0-0.8); Monocytes % (Auto) 8 % (0-12); Neutrophils # (Auto) 11.8 Thou/mm3 (1.8-7.7); Neutrophils % (Auto) 82 % (37-80); Nucleated Red Blood Cell % 0 /100 WBC (0); Platelet Count 247 Thou/mm3 (140-440); White Blood Count 14.5 Thou/mm3 (3.8-10.6)
[2024-11-03 07:04] LABS: Alanine Aminotransferase 24 U/L (10-49); Albumin, Serum 4.7 gm/dL (3.4-4.8); Albumin/Globulin Ratio 1.8 (1.2-2.2); Alkaline Phosphatase 79 U/L (46-116); Anion Gap 10 (7-16); Aspartate Amino Transferase 26 U/L (0-34); BUN/Creatinine Ratio 15 Ratio (12-20); Bilirubin,Total 0.6 mg/dL (0.3-1.2); Blood Urea Nitrogen 16 mg/dL (9-23); Calcium 9.4 mg/dL (8.3-10.6); Calcium (Corrected) 9.4 mg/dL (8.5-10.1); Chloride 105 mMol/L (98-107); Cholesterol 135 mg/dL (132-200); Creatinine (Component) 1.1 mg/dL (0.6-1.3); Estimated Creatinine Clearance 49.6 mL/min (>60); Globulin 2.6 gm/dL (2.3-3.5); Glucose 124 mg/dL (74-106); HDL Cholesterol 67 mg/dL (40-60); LDL Cholesterol,Calculated 57 mg/dL (0-130); Osmolality,Calculated 279 (275-295); Potassium 4.2 mMol/L (3.4-5.1); Sodium 139 mMol/L (136-145); Total Protein 7.3 gm/dL (5.7-8.2); Triglycerides 56 mg/dL (30-150); eGFR > 60 See Note
--- NOTE | 2024-11-03 09:00 | XR_ITS ---
Examination: AP chest single view Technique one AP portable semiupright chest single view Exam date and time: November 03, 2024 0524 hrs. Comparison November 02, 2024 Indications: Hypoxic respiratory failure, stroke alert, altered mental status yesterday Findings: Opacity left base retrocardiac obscuring detail left hemidiaphragm Normal heart size Endotracheal tube tip 2.9 cm above radha Mild vascular congestion Moderate osteopenia The orogastric tube is in the stomach, the tip is below the level of the film Impression: Interval mild pneumonia left base, consider aspiration pneumonia
[2024-11-03] MEDS: ASPIRIN 81 MG CHEW PO (09:02)
[2024-11-03] MEDS: cefTRIAXone/D5w 1gm IV premix 50 ML IV (09:02)
[2024-11-03] MEDS: PANTOPRAZOLE INJ 40 MG VIAL IVP (09:02)
--- NOTE | 2024-11-03 09:07 | PC.NURSE ---
PTs BP at 0900 186/97. Re-take BP 200/85. MD Reed made aware. N o new orders at this time.
[2024-11-03] MEDS: AZITHROMYCIN INJ 500 MG in SODIUM CHLORIDE 0.9% 250 ML 250 ML 250 MG IV (09:48)
--- NOTE | 2024-11-03 11:14 | ECHO_ITS ---
Transthoracic Echo Report Ht (in): 63 Wt (lb): 146 Exam Location: Portable Status: Inpatient [place] [employer] [place] Head Assistant: Nichol Molina Indications: Procedure Performed: BP: 161 / 77 HR: 83 Rhythm: Sinus Technical Quality: Fair Contrast: Agitated Saline Total Dose (mL): MEASUREMENTS (Male / Female) Normal Values 2D ECHO LV Diastolic Diameter PLAX 5.3 cm 4.2 - 5.9 / 3.9 - 5.3 cm LV Systolic Diameter PLAX 3.5 cm IVS Diastolic Thickness 1.1 cm 0.6 - 1.0 / 0.6 - 0.9 cm LVPW Diastolic Thickness 1.1 cm 0.6 - 1.0 / 0.6 - 0.9 cm LV Relative Wall Thickness 0.4 LVOT Diameter 1.9 cm LA Volume Index 42.8 cm?/m? 16 - 28 cm?/m? Ascending Aorta Diameter 3.4 cm M-MODE Aortic Root Diameter MM 2.7 cm LA Systolic Diameter MM 4.0 cm LA Ao Ratio MM 1.5 AV Cusp Separation MM 2.3 cm DOPPLER AV Peak Velocity 148.0 cm/s AV Peak Gradient 8.8 mmHg AV Mean Gradient 5.0 mmHg AV Velocity Time Integral 29.6 cm AI Peak Velocity 449.5 cm/s AI Peak Gradient 80.8 mmHg AI Pressure Half Time 268.0 ms LVOT Peak Velocity 115.0 cm/s LVOT Peak Gradient 5.3 mmHg LVOT Velocity Time Integral 23.7 cm LVOT Cardiac Index 3223.8 cm?/min?m? AV Area Cont Eq vti 2.3 cm? AV Area Cont Eq pk 2.2 cm? MV Peak Velocity 140.0 cm/s MV Peak Gradient 7.8 mmHg MV Mean Velocity 79.0 cm/s MV Mean Gradient 3.0 mmHg MV Area PHT 5.0 cm? MR Peak Velocity 350.0 cm/s MR Peak Gradient 49.0 mmHg Mitral E Point Velocity 75.7 cm/s Mitral A Point Velocity 125.0 cm/s Mitral E to A Ratio 0.6 LV E' Lateral Velocity 9.9 cm/s Mitral E to LV E' Lateral Ratio 7.6 LV E' Septal Velocity 4.3 cm/s Mitral E to LV E' Septal Ratio 17.4 TR Peak Velocity 257.5 cm/s TR Peak Gradient 26.5 mmHg FINDINGS Left Ventricle Normal left ventricular size, systolic function with no obvious regional wall motion abnormalities. Mild LVH. The ejection fraction is visually estimated at 60-65 %. Right Ventricle The right ventricle is normal in size and systolic function. The estimated right ventricular systoli c pressure, 37 mmHg. RAP 10 Left Atrium The left atrium is mildly dilated. Right Atrium The right atrium is normal by two-dimensional imaging, color flow and Doppler imaging with no struct ural abnormalities, no thrombus formation present. Atrial Septum The interatrial septum appears normal with no evidence of a shunt. Aorta The aorta is normal by two-dimensional, color flow and Doppler interrogation. Mitral Valve The mitral valve is mildly MAC. There is mild mitral valve regurgitation. Aortic Valve The aortic valve is trileaflet and normal by two-dimensional, color flow and Doppler interrogation. There is mild aortic valve regurgitation. Tricuspid Valve The tricuspid valve is normal by two-dimensional, color flow and Doppler interrogation. There is mil d tricuspid valve regurgitation. Pulmonic Valve There is no significant pulmonic valve regurgitation. Vessels The pulmonary artery appears normal. The inferior vena cava pulmonary and hepatic veins appear carina l. Pericardium The pericardium is normal by two-dimensional imaging. There is no significant pericardial effusion. CONCLUSIONS Negative bubble study. No evidence of PFO or ASD. Normal LV size and function. Mild LVH. Estimated EF 60-65% Normal RV size and function. Estimated RVSP 37mmHg. LA mild dilatation Mild to moderate aoric regurgitation Modearte to heavy MAC with mild mitral regurgitation Destiny Gramajo (Electronically Signed) Final Date: 04 November 2024 12:58
--- NOTE | 2024-11-03 11:28 | PD.RESPRO ---
Documentation for date of: 11/03/24 Subjective Subjective Interval history: 69 yo M with pmhx of HTN, DMT2, HLD, Alzheimer's presented to the ED due to AMS. Unable to obtain history from patient due to being sedated and intubated. History taken from sons at bedside. Per family, patient was playing with his grandchildren, then he went to take a bath, all of a sudden family heard the patient screaming. Once the family arrived at the bathroom patient was on the floor complaining of dizziness. EMS arrived and noted that the patient patient severely hypertensive and obtunded. Upon arrival to the ED patient was obtunded. Patient was intubated for airway protection. Teleneuro was consulted in the ED. They had concerns for posterior stroke. CT head was negative. CTA H/N showed 30-50% stenosis origin right internal carotid artery. 10-30% stenosis proximal 15 mm left internal carotid artery. 50% stenosis left intracranial vertebral artery. 80% plus stenosis right posterior cerebral artery junction P1 P2 segments. Bilateral 40-60% stenoses juxtasellar internal carotid arteries. No cerebral large vessel arterial occlusions. See teleneuro reccs on the consult note. 11/03/2024 patient was obeying commands this morning appropriately passes spontaneous breathing trial and ultimately extubated his blood pressure was well-controlled and he displayed no signs of neurologic deficit. Downgraded to telemetry. Spoke with son reiterated importance of blood pressure medication management at home. Exam Vital Signs Temp Pulse Resp BP Pulse Ox O2 Del Method O2 Flow Rate 98.7 F 83 15 152/73 H 99 Mechanical Ventilation 2 11/03/24 07:00 11/03/24 11:00 11/03/24 11:00 11/03/24 11:00 11/03/24 11:00 11/03/24 04:00 11/03/24 09:30 FiO2 45 11/03/24 08:00 Constitutional Constitutional: no acute distress Routine HEENT Exam Head: Present normocephalic and atraumatic Eye: Present EOMI and PERRL ENT: Present mucous membranes moist Routine Respiratory Exam Respiratory: Present chest non-tender, lungs clear and normal breath sounds Routine Cardiovascular Exam Cardiovascular: Present RRR Routine Abdominal Exam Abdominal: Present soft and normoactive bowel sounds Routine Skin Exam Skin: Present intact Routine Neurological Exam Neurological: Present alert, oriented X3 and CN II-XII intact; Absent sensory deficit or motor deficit Routine Psychiatric Exam Psychiatric: Present normal affect Objective Labs 11/04/24 08:05 11/04/24 08:05 Labs: Laboratory Results - last 24 hr 11/02/24 11/02/24 11/02/24 17:37 17:52 18:25 WBC 11.2 H RBC 5.05 Hgb 14.6 Hct 43.2 MCV 86 MCH 28.9 MCHC 33.8 RDW Std Deviation 41.6 Plt Count 248 Neut % (Auto) 30 L Lymph % (Auto) 53 H [place] % (Auto) 8 Eos % (Auto) 8 Baso % (Auto) 1 Neut # (Auto) 3.3 Lymph # (Auto) 5.9 H [place] # (Auto) 0.9 H Eos # (Auto) 0.9 H Baso # (Auto) 0.1 Immature Gran # (Auto) 0.09 H Absolute Nucleated RBC 0.00 Immature Gran % 1 H Nucleated RBC % 0 PT 10.5 INR 1.0 APTT 21.8 L Puncture Site Right Radial ABG pH 7.35 ABG pCO2 47 ABG pO2 410 H ABG HCO3 26 ABG O2 Saturation 100 H ABG Base Excess -1 FiO2 100 Sodium 138 Potassium 2.9 L Chloride 103 Carbon Dioxide 22.7 Anion Gap 12 BUN 16 Creatinine 1.4 H Estim Creat Clear Calc 43.2 L eGFR 54 L BUN/Creatinine Ratio 11 L Glucose [address] Glu mg/dL Hemoglobin A1c Calculated Osmolality 279 Calcium 9.8 Corrected Calcium 9.8 Total Bilirubin 0.5 AST 14 ALT 22 Alkaline Phosphatase 86 Total Protein 8.0 Albumin 5.0 H Globulin 3.0 Albumin/Globulin Ratio 1.7 Triglycerides Cholesterol LDL Cholesterol, Calc HDL Cholesterol Cholesterol/HDL Ratio Ur Collection Type Catheter Urine Color Colorless A Urine Clarity Clear Urine pH 7.0 Ur Specific [place] 1.011 Urine Protein 1+ A Urine Glucose (UA) 1+ A Urine Ketones Negative Urine Blood Negative Urine Nitrite Negative Urine Bilirubin Negative Urine Urobilinogen (Auto) Negative Ur Leukocyte Esterase Negative Urine RBC 1 Urine WBC 1 Ur Squamous Epith Cells 0 Urine Bacteria None Urine Opiates Screen Negative Urine Fentanyl Screen Negative Ur Barbiturates Screen Negative U Amphetamin/Meth Scrn Negative U Benzodiazepines Scrn Negative U Cocaine Metab Screen Negative U Marijuana (THC) Screen Negative Ethyl Alcohol < 3.0 11/03/24 11/03/24 11/03/24 01:09 04:17 05:30 WBC 14.5 H RBC 4.70 Hgb 13.7 Hct 40.3 L MCV 86 MCH 29.1 MCHC 34.0 RDW Std Deviation 43.0 Plt Count 247 Neut % (Auto) 82 H Lymph % (Auto) 9 L [place] % (Auto) 8 Eos % (Auto) 1 Baso % (Auto) 1 Neut # (Auto) 11.8 H Lymph # (Auto) 1.4 [place] # (Auto) 1.1 H Eos # (Auto) 0.1 Baso # (Auto) 0.1 Immature Gran # (Auto) 0.05 H Absolute Nucleated RBC 0.00 Immature Gran % 0 Nucleated RBC % 0 PT INR APTT Puncture Site Right Radial ABG pH 7.35 ABG pCO2 46 ABG pO2 164 H D ABG HCO3 25 ABG O2 Saturation 100 H ABG Base Excess -1 FiO2 45 Sodium 139 Potassium 4.2 D Chloride 105 Carbon Dioxide 24.0 Anion Gap 10 BUN 16 Creatinine 1.1 Estim Creat Clear Calc 49.6 L eGFR > 60 BUN/Creatinine Ratio 15 [address]ucose [address] Glu mg/dL 148 H Hemoglobin A1c 6.8 H Calculated Osmolality 279 Calcium 9.4 Corrected Calcium 9.4 Total Bilirubin 0.6 AST 26 ALT 24 Alkaline Phosphatase 79 Total Protein 7.3 Albumin 4.7 Globulin 2.6 Albumin/Globulin Ratio 1.8 Triglycerides 56 Cholesterol 135 LDL Cholesterol, Calc 57 HDL Cholesterol 67 H Cholesterol/HDL Ratio 2.0 L Ur Collection Type Clean Catch Urine Color Lt-Yellow Urine Clarity Clear Urine pH 6.5 Ur Specific [place] 1.049 H Urine Protein 1+ A Urine Glucose (UA) Negative Urine Ketones Negative Urine Blood 3+ A Urine Nitrite Negative Urine Bilirubin Negative Urine Urobilinogen (Auto) Negative Ur Leukocyte Esterase Negative Urine RBC 148 H Urine WBC 27 H Ur Squamous Epith Cells 0 Urine Bacteria None Urine Opiates Screen Urine Fentanyl Screen Ur Barbiturates Screen U Amphetamin/Meth Scrn U Benzodiazepines Scrn U Cocaine Metab Screen U Marijuana (THC) Screen Ethyl Alcohol ABG Interpretation ABG results: 11/02/24 11/03/24 18:25 04:17 ABG pH 7.35 7.35 ABG pCO2 47 46 ABG pO2 410 H 164 H D ABG HCO3 26 25 ABG O2 Saturation 100 H 100 H ABG Base Excess -1 -1 Quality Measures Quality Measures stroke Suspected type of Stroke: Unknown at this time Last known well (date): 11/02/24 Last known well (time): 16:10 Tenecteplase given: Reason(s) Tenecteplase not given: Refusal not given Rehab services: PT evaluation ordered VTE Prophylaxis: mechanical Antithrombotic by day 2:: contraindicated (describe) (concern for stroke) Statin ordered: n/a Anticoagulation ordered for A-fib or flutter (current or hx): not indicated Advance care planning discussed with:: child Assessment & Plan Assessment Current Active Medications: Generic Name Dose Route Start Last Admin Trade Name Freq PRN Reason Stop Dose Admin Acetaminophen 650 mg 11/02/24 20:27 Acetaminophen 325 Mg Tablet PO 12/02/24 20:26 Q4HR PRN PAIN SCALE 1-3 (mild Acetaminophen 650 mg 11/02/24 20:27 Acetaminophen Supp 650 Mg Supp W[place] 12/02/24 20:26 Q4HR PRN PAIN SCALE 1-3 (mild Aspirin 81 mg 11/03/24 09:00 11/03/24 09:02 Aspirin 81 Mg Chew PO 12/03/24 08:59 81 mg QDAY VANESSA Administration Dextrose 25 ml 11/02/24 20:46 Dextrose 50%-Water Inj 50 Ml Syringe IV 12/02/24 20:45 Q15MIN PRN BG 50-70 responsive npo pt Dextrose 50 ml 11/02/24 20:46 Dextrose 50%-Water Inj 50 Ml Syringe IV 12/02/24 20:45 Q15MIN PRN BG <50 OR BG <70 & pt unresponsive Glucagon 1 mg 11/02/24 20:46 Glucagon Inj 1 Mg Vial IM Q15MIN PRN BG <70, and no IV access Nicardipine/Sodium Chloride 20 mg in 200 mls @ 50 mls/hr 11/02/24 18:56 11/02/24 19:34 Cardene Ivpb IV 12/02/24 18:55 0 mg/hr .Q4H PRN 0 mls/hr PER PROTOCOL Titration Protocol 5 MG/HR Fentanyl Citrate 2,500 mcg in 250 mls @ 2.5 mls/hr 11/02/24 20:29 11/03/24 08:36 Sublimaze Inj 2,500 Mcg/250 Ml Bag IV 11/07/24 20:28 0 mcg/hr .Q24H PRN 0 mls/hr PER PROTOCOL Titration Protocol 25 MCG/HR Midazolam HCl 100 mg in 100 mls @ 1 mls/hr 11/02/24 21:41 11/03/24 06:41 Versed Pf Inj In Ns Premix IV 11/07/24 21:40 0 mg/hr .Q24H PRN 0 mls/hr PER PROTOCOL Titration Protocol 1 MG/HR Ceftriaxone Sodium/Dextrose 50 mls @ 100 mls/hr 11/03/24 09:00 11/03/24 09:02 Rocephin/D5w 1gm Iv Premix IV 11/10/24 08:59 100 mls/hr QDAY VANESSA Administration Azithromycin 500 mg/ Sodium 250 mls @ 250 mls/hr 11/03/24 09:00 11/03/24 09:48 Chloride IV 11/10/24 08:59 250 mls/hr QDAY VANESSA Administration Insulin Human Lispro 0 unit 11/02/24 21:00 11/03/24 07:49 Insulin Lispro (Admelog) 1 Unit/0.01 Ml Unit SC 12/02/24 20:59 Not Given ACHS VANESSA Protocol Pantoprazole Sodium 40 mg 11/02/24 20:30 11/03/24 09:02 Pantoprazole Inj 40 Mg Vial IVP 12/02/24 20:29 40 mg QDAY VANESSA Administration Additional Assessment: 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 CTA H/N showed 30-50% stenosis origin right internal carotid artery. 10-30% stenosis proximal 15 mm left internal carotid artery. 50% stenosis left intracranial vertebral artery. 80% plus stenosis right posterior cerebral artery junction P1 P2 segments. Bilateral 40-60% stenoses juxtasellar internal carotid arteries. No cerebral large vessel arterial occlusions. Plan: -permissive HTN (BP goal <220/110) -ASA 81 mg qd -MRI brain ordered Cardio: #Hypertensive emergency (controlled) Initial BP on arrival was 241/93 with end organ damage. Patient is on 4 antihypertensive medications Plan: -allow permissive HTN due to stroke w/u -nicardapine gtt if BP >220/110 ? Echo pending Pulm: # Mild bilateral basilar consolidation Afebrile, normal white count Plan: -Continue ceftriaxone and azithromycin GI: stable Progress diet as tolerated Renal: #Acute kidney injury (resolved) Likely secondary to HTN emergency Cr 1.4 on admission (baseline 0.9) Plan: -monitor UOP -control BP -IVF -avoid nephrotoxins if possible Endo: #Hx of T2DM (a1c 6.4% 07/2024)) Controlled, hold home medications Plan: -insulin sliding scale protocol -glucose goal of 140-180 Heme: stable ID: stable Skin/MSK: Osteopenic lesions throughout, possible scapular fractures seen on CT, some concern for metastatic disease Plan: PSA pending ICU Health maintenance: Mechanical ventilation: none Sedation: none FEN: progress as tolerated DVT ppx: SCDs GI ppx: protonix Johnson: yes IV lines: 2 Central line: none Arterial line: none Code status: FULL code Dispo: downgraded to telemetry Attending Provider Attestation/Addendum Patient seen and examined with above resident, Jose Luis Dexter DO. I agree with the findings, assessment, and plan of care as documented except for any differences below. Patient admitted with hypertensive emergency and possible TIA versus ischemic stroke. Patient with permissive hypertension allowed with elevated pressures after discontinuation of sedation this morning. Patient successfully weaned after SBT for mechanical ventilation. Will transfer to medicine warren for ongoing management. Patient does need follow-up imaging with MRI. He continues to have some component of dizziness though this may be related to medications and hypertension as much as it is true ischemic event. CT imaging is not ideal as it is not the best for cerebellar imaging and we will await MRI results for further assessment. Patient will benefit from continued statin and aspirin use, if it was truly a TIA would consider addition of Plavix. Teleneurology is following the patient will I will ultimately defer to their expertise. Patient and family updated at bedside on plan of care and are agreeable. Total critical care time: I personally spent 35 minutes for review of physiologic parameters, directing plan of care throughout the day, coordination of care with other specialties, and counseling patient/family at bedside. This is exclusive of time spent teaching housestaff or performing any separate billable procedures. Patient continues require critical care services for acute respiratory failure secondary to acute encephalopathy from hypertensive emergency versus ischemic CVA. Patient remains at high risk for further deterioration and mortality without prompt intervention warranting continued close monitoring will be available in the ICU setting.
--- NOTE | 2024-11-03 11:52 | EKG_ITS ---
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
--- NOTE | 2024-11-03 11:59 | PC.SS ---
This is 69-year-old, , single male who presented to the ED due to suffering from altered mental status. Patient appeared confused. SW completed assessment with his son, Mariam ([phone]). Per Mariam, patient resides at home with his son, Chuck Jim. Patient is independent with all ADLs, no DME use. Patient's PCP is Dr. Gamboa. When medically clear, patient will return home; no transportation is needed. Discharge plan: Home No next of kin available, SW will follow up with patient when alert and oriented.
--- NOTE | 2024-11-03 14:53 | EVENTNT_ITS ---
<Statement entered by Diane Tapia MD - 11/09/24 14:15> I reviewed above note and agree with findings and plans. I have also personally examined the patient with medicine team and went over assessment and plan with medical team including marketing summer intern and resident physician. Documentation for date of: 11/03/24 Event Note Event Note: Mr. Garcia is a 69-year-old male with past medical history of hypertension, type 2 diabetes mellitus, hyperlipidemia, Lyme's disease who presented to [facility] on 11/02/2024 due to altered mental status. Patient was sedated and intubated in the ED for airway protection, patient had critically high blood pressures was concern of intracranial hemorrhage. History was taken from family at bedside, patient was playing with his grandchildren when he went to take a bath and all of a sudden family heard the patient screaming, EMS arrived and noted the patient was severely hypertensive and obtunded. Teleneuro was consulted in ED, patient had a concern of posterior stroke. CT scan of the head was negative, CTA H/N showed 30-50% stenosis origin right internal carotid artery. 10-30% stenosis proximal 15 mm left internal carotid artery. 50% stenosis left intracranial vertebral artery. 80% plus stenosis right posterior cerebral artery junction P1 P2 segments. Bilateral 40-60% stenoses juxtasellar internal carotid arteries. No cerebral large vessel arterial occlusions. NIHSS was 27 in ED, patient not a candidate for thrombolytic as last known well time was more than 4.5 hours. Patient was admitted to ICU for hypertensive emergency management. Patient was on nicardipine gtt., permissive hypertension was allowed, patient was started on aspirin, eventually patient weaned off of sedation, patient passed spontaneous breathing trial and was extubated, patient has no signs of neurological deficits patient will be downgraded to telemetry. Patient has pending MRI brain, echo cardiogram, on IV ceftriaxone and azithromycin, chest x-ray concerning of pneumonia, CT abdomen pelvis with contrast shows mild bibasilar pneumonia, multicystic liver kidney disease, mild dilation bilateral renal calyces and ureters, irregular urinary bladder wall thickening up to 11 mm cystitis, suspicion of bladder cancer, suspicion of fracture of left scapula and 13 mm sclerotic focus posterior left T9 vertebral body, 5 mm sclerotic focus manubrium there is concern of metastatic disease PSA pending. Primary team will resume care of the patient tomorrow morning. Patient downgraded to team B starting tomorrow. Case discussed with Attending Dr. Tapia. Nicolas Almendarez PGY1
[2024-11-03] MEDS: PROCHLORPERAZINE MALEATE 5 MG TABLET 10 MG PO (20:09)
[2024-11-03] MEDS: ATORVASTATIN CALCIUM 20 MG TABLET PO (20:15)
[2024-11-04] VITALS (17 sets, daily range): BP systolic 118–192; BP diastolic 65–93; PULSE 71–100; RESP 14–22; TEMP 36.1–37.4; O2SAT 95–98; BMI 26.0
--- NOTE | 2024-11-04 | XR_ITS ---
Examinations: MRI Brain without intravenous contrast. MRA brain without intravenous contrast. MRA carotids without intravenous contrast 3-D vascular reconstructions Date and time of exam: November 04, 2024 0921 hours INDICATIONS: Stroke protocol, dizziness episodes altered mental status beginning 2 days ago Technique: Multiple axial and sagittal images of the brain have been obtained MRA brain carotid images without contrast obtained, including 3-D postprocessing, vascular maximum intensity projection images Findings: [place] is not enlarged. The optic chiasm and infundibular stalk are not remarkable. Prepontine and interpeduncular cisterns are not enlarged. No localized enlargement of the medulla or [place]xanne. Fourth ventricle and cerebellar tonsils normal in position. Subacute hemorrhage is not seen. Fourth ventricle is midline. Mass in the cerebellopontine angle region is not evident. 7th and 8th nerve complexes exhibits symmetry. Globes are symmetrical with no retro-orbital mass. Increased white matter signal prominent Diffusion-weighted images demonstrate no focus of restricted diffusion Mass-effect upon the ventricular system is not identified. MRA carotid images degraded by patient motion. MRA brain images moderate diffuse cerebral arterial irregularity Impression: Negative for acute hemorrhage mass effect or midline shift No acute infarct Prominent chronic microvascular white matter change Moderate diffuse cerebral arterial irregularity
--- NOTE | 2024-11-04 00:47 | PC.NURSE ---
BP 178/90, HR 100; Dr. Palacio was made aware. MD to review patient's chart and said to put in orders.
--- NOTE | 2024-11-04 04:01 | PC.NURSE ---
BP 161/77, HR 90. Dr. Dominguez was made aware, no new orders obtained. Per MD, notify provider if SBP >180.
[2024-11-04] MEDS: INSULIN LISPRO (AdmeLOG) 1 UNIT/0.01 ML UNIT SC ×4 (07:50→20:10)
--- NOTE | 2024-11-04 07:58 | PC.NURSE ---
Dr Almendarez notified of 192/83 blood pressure with HR of 71. Awaiting orders.
[2024-11-04 08:30] LABS: Basophils # (Auto) 0.1 Thou/mm3 (0.0-0.2); Basophils % (Auto) 1 % (0-2.5); Eosinophils # (Auto) 0.1 Thou/mm3 (0.0-0.5); Eosinophils % (Auto) 1 % (0-10); Hematocrit 41.3 % (41.0-53.0); Hemoglobin 13.8 g/dL (13.5-16.0); Immature Granulocytes % (Auto) 0 % (0-0); Immature Granulocytes Auto 0.03 Thou/mm3 (0.00-0.00); Lymphocytes # (Auto) 2.2 Thou/mm3 (1.0-4.8); Lymphocytes % (Auto) 23 % (10-50); Mean Corpuscular HGB Conc 33.4 g/dl (31.0-37.0); Mean Corpuscular Hemoglobin 28.7 pg (25.0-35.0); Mean Corpuscular Volume 86 fL (80-100); Monocytes # (Auto) 0.9 Thou/mm3 (0.0-0.8); Monocytes % (Auto) 10 % (0-12); Neutrophils # (Auto) 6.2 Thou/mm3 (1.8-7.7); Neutrophils % (Auto) 65 % (37-80); Nucleated Red Blood Cell % 0 /100 WBC (0); Platelet Count 240 Thou/mm3 (140-440); RDW Standard Deviation 43.5 fL (35.1-43.9); Red Blood Count 4.81 Miln/mm3 (4.50-5.90); White Blood Count 9.6 Thou/mm3 (3.8-10.6)
[2024-11-04 09:01] LABS: Alanine Aminotransferase 16 U/L (10-49); Albumin, Serum 4.5 gm/dL (3.4-4.8); Albumin/Globulin Ratio 1.6 (1.2-2.2); Alkaline Phosphatase 73 U/L (46-116); Anion Gap 12 (7-16); Aspartate Amino Transferase 21 U/L (0-34); BUN/Creatinine Ratio 11 Ratio (12-20); Bilirubin,Total 0.8 mg/dL (0.3-1.2); Blood Urea Nitrogen 13 mg/dL (9-23); Calcium 9.7 mg/dL (8.3-10.6); Calcium (Corrected) 9.7 mg/dL (8.5-10.1); Carbon Dioxide 23.5 mMol/L (20.0-31.0); Chloride 105 mMol/L (98-107); Creatinine (Component) 1.2 mg/dL (0.6-1.3); Estimated Creatinine Clearance 45.4 mL/min (>60); Globulin 2.9 gm/dL (2.3-3.5); Glucose 120 mg/dL (74-106); Osmolality,Calculated 280 (275-295); Potassium 3.2 mMol/L (3.4-5.1); Sodium 140 mMol/L (136-145); Total Protein 7.4 gm/dL (5.7-8.2); eGFR > 60 See Note
[2024-11-04] MEDS: cefTRIAXone/D5w 1gm IV premix 50 ML IV (10:11)
[2024-11-04] MEDS: hydrALAZINE HCL 25 MG TABLET 50 MG PO ×3 (10:12→22:14)
[2024-11-04] MEDS: PANTOPRAZOLE INJ 40 MG VIAL IVP (10:12)
[2024-11-04] MEDS: AZITHROMYCIN 250 MG TABLET 500 MG PO (10:13)
[2024-11-04] MEDS: METOPROLOL SUCCINATE XL 25 MG TABCR 50 MG PO ×2 (10:14→20:11)
[2024-11-04] MEDS: ASPIRIN 81 MG CHEW PO (10:14)
[2024-11-04] MEDS: amLODIPine BESYLATE 5 MG TABLET 10 MG PO (10:15)
[2024-11-04] MEDS: POTASSIUM CHLORIDE 20 mEq TABCR 40 MEQ PO (10:49)
[2024-11-04] MEDS: LOSARTAN POTASSIUM 25 MG TABLET 50 MG PO (10:49)
[2024-11-04] MEDS: POTASSIUM CHLORIDE 20 mEq TABCR PO (13:47)
--- NOTE | 2024-11-04 14:39 | ESPR_ITS ---
<Statement entered by Diane Tapia MD - 11/09/24 14:16> I reviewed above note and agree with findings and plans. I have also personally examined the patient with medicine team and went over assessment and plan with medical team including internal combustion engine inspector and resident physician. Documentation for date of: 11/04/24 Subjective Subjective Interval history: Patient seen at bedside today. Resting comfortably in bed. No focal neurological deficits or residual deficits noted. Patient does not appear to be encephalopathic and is able to follow commands and answer questions appropriately. MRI negative for stroke or malignancy. Unknown currently the cause of patient's encephalopathy. Pending cardiac echo exam. Exam Vital Signs Temp Pulse Resp BP Pulse Ox O2 Del Method O2 Flow Rate 97.0 F 92 21 H 133/71 H 95 Room Air 2 11/04/24 13:45 11/04/24 13:47 11/04/24 13:45 11/04/24 13:47 11/04/24 13:45 11/04/24 13:45 11/03/24 09:30 FiO2 45 11/03/24 08:00 Constitutional Constitutional: no acute distress Routine HEENT Exam Head: Present normocephalic and atraumatic Eye: Present EOMI and PERRL ENT: Present mucous membranes moist Routine Respiratory Exam Respiratory: Present chest non-tender, lungs clear and normal breath sounds Routine Cardiovascular Exam Cardiovascular: Present RRR Routine Abdominal Exam Abdominal: Present soft and normoactive bowel sounds Routine Skin Exam Skin: Present intact Routine Neurological Exam Neurological: Present alert, oriented X3 and CN II-XII intact; Absent sensory deficit or motor deficit Routine Psychiatric Exam Psychiatric: Present normal affect Objective Labs 11/04/24 08:05 11/04/24 08:05 Labs: Laboratory Results - last 24 hr 11/04/24 08:05 WBC 9.6 RBC 4.81 Hgb 13.8 Hct 41.3 MCV 86 MCH 28.7 MCHC 33.4 RDW Std Deviation 43.5 Plt Count 240 Neut % (Auto) 65 Lymph % (Auto) 23 [place] % (Auto) 10 Eos % (Auto) 1 Baso % (Auto) 1 Neut # (Auto) 6.2 Lymph # (Auto) 2.2 [place] # (Auto) 0.9 H Eos # (Auto) 0.1 Baso # (Auto) 0.1 Immature Gran # (Auto) 0.03 H Absolute Nucleated RBC 0.00 Immature Gran % 0 Nucleated RBC % 0 Sodium 140 Potassium 3.2 L D Chloride 105 Carbon Dioxide 23.5 Anion Gap 12 BUN 13 Creatinine 1.2 Estim Creat Clear Calc 45.4 L eGFR > 60 BUN/Creatinine Ratio 11 L Glucose 120 H Calculated Osmolality 280 Calcium 9.7 Corrected Calcium 9.7 Total Bilirubin 0.8 AST 21 ALT 16 Alkaline Phosphatase 73 Total Protein 7.4 Albumin 4.5 Globulin 2.9 Albumin/Globulin Ratio 1.6 ABG Interpretation ABG results: 11/02/24 11/03/24 18:25 04:17 ABG pH 7.35 7.35 ABG pCO2 47 46 ABG pO2 410 H 164 H D ABG HCO3 26 25 ABG O2 Saturation 100 H 100 H ABG Base Excess -1 -1 Quality Measures Quality Measures stroke Suspected type of Stroke: Unknown at this time Last known well (date): 11/02/24 Last known well (time): 16:10 Tenecteplase given: Reason(s) Tenecteplase not given: Refusal not given Rehab services: PT evaluation ordered and Speech Language Pathology eval ordered VTE Prophylaxis: pharmaceutical Antithrombotic by day 2:: not indicated (describe) Statin ordered: not ordered Anticoagulation ordered for A-fib or flutter (current or hx): not indicated Advance care planning discussed with:: patient Assessment & Plan Assessment Current Active Medications: Generic Name Dose Route Start Last Admin Trade Name Freq PRN Reason Stop Dose Admin Acetaminophen 650 mg 11/02/24 20:27 Acetaminophen 325 Mg Tablet PO 12/02/24 20:26 Q4HR PRN PAIN SCALE 1-3 (mild Acetaminophen 650 mg 11/02/24 20:27 Acetaminophen Supp 650 Mg Supp SC 12/02/24 20:26 Q4HR PRN PAIN SCALE 1-3 (mild Amlodipine Besylate 10 mg 11/04/24 09:00 11/04/24 10:15 Amlodipine Besylate 5 Mg Tablet PO 12/04/24 08:59 10 mg QDAY VANESSA Administration Aspirin 81 mg 11/03/24 09:00 11/04/24 10:14 Aspirin 81 Mg Chew PO 12/03/24 08:59 81 mg QDAY VANESSA Administration Atorvastatin Calcium 20 mg 11/03/24 21:00 11/03/24 20:15 Atorvastatin Calcium 20 Mg Tablet PO 12/03/24 20:59 20 mg HS VANESSA Administration Azithromycin 500 mg 11/04/24 09:00 11/04/24 10:13 Azithromycin 250 Mg Tablet PO 11/11/24 08:59 500 mg QDAY VANESSA Administration Dextrose 50 ml 11/02/24 20:46 Dextrose 50%-Water Inj 50 Ml Syringe IV 12/02/24 20:45 Q15MIN PRN BG <50 OR BG <70 & pt unresponsive Glucagon 1 mg 11/02/24 20:46 Glucagon Inj 1 Mg Vial IM Q15MIN PRN BG <70, and no IV access Hydralazine HCl 50 mg 11/04/24 14:00 11/04/24 13:47 Hydralazine Hcl 25 Mg Tablet PO 12/04/24 13:59 50 mg TID VANESSA Administration Ceftriaxone Sodium/Dextrose 50 mls @ 100 mls/hr 11/04/24 08:09 11/04/24 10:11 Rocephin/D5w 1gm Iv Premix IV 11/10/24 08:08 100 mls/hr QDAY VANESSA Administration Insulin Human Lispro 0 unit 11/02/24 21:00 11/04/24 11:51 Insulin Lispro (Admelog) 1 Unit/0.01 Ml Unit SC 12/02/24 20:59 2 unit ACHS VANESSA Administration Protocol Losartan Potassium 50 mg 11/04/24 10:45 11/04/24 10:49 Losartan Potassium 25 Mg Tablet PO 12/04/24 10:44 50 mg QDAY VANESSA Administration Metoprolol Succinate 50 mg 11/04/24 09:00 11/04/24 10:14 Metoprolol Succinate Xl 25 Mg Tabcr PO 12/04/24 08:59 50 mg BID VANESSA Administration Pantoprazole Sodium 40 mg 11/02/24 20:30 11/04/24 10:12 Pantoprazole Inj 40 Mg Vial IVP 12/02/24 20:29 40 mg QDAY VANESSA Administration Prochlorperazine Maleate 10 mg 11/03/24 16:16 11/03/24 20:09 Prochlorperazine Maleate 5 Mg Tablet PO 12/03/24 16:15 10 mg Q6HR PRN Administration NAUSEA OR VOMITING Plan #Acute encephalopathy (resolved)- possible 2/2 HTN emergency, possible TIA #Stroke work up -CT head was negative. CTA H/N showed 30-50% stenosis origin right internal carotid artery. 10-30% stenosis proximal 15 mm left internal carotid artery. 50% stenosis left intracranial vertebral artery. 80% plus stenosis right posterior cerebral artery junction P1 P2 segments. Bilateral 40-60% stenoses juxtasellar internal carotid arteries. No cerebral large vessel arterial occlusions. -permissive HTN (BP goal <220/110) -ASA 81 mg qd -MRI brain negative for infarct Patient is back to baseline mentation #Hypertensive emergency (controlled) Initial BP on arrival was 241/93 with end organ damage. Patient is on 4 antihypertensive medications Plan: Amlodipine 10 mg p.o. daily Hydralazine 50 3 times daily Losartan 50 mg daily Metoprolol succinate 50 mg p.o. twice daily #Community-acquired pneumonia # Mild bilateral basilar consolidation Afebrile, normal white count Plan: -Continue ceftriaxone and azithromycin #Acute kidney injury (resolved) Likely secondary to HTN emergency Cr 1.4 on admission (baseline 0.9) Plan: -monitor UOP -control BP -IVF -avoid nephrotoxins if possible Patient also noted to have multicystic kidneys along with liver cysts so recommend outpatient nephrology follow-up may be secondary to polycystic kidney disease #Hx of T2DM (a1c 6.4% 07/2024)) Controlled, hold home medications Plan: -insulin sliding scale protocol -glucose goal of 140-180 Osteopenic lesions throughout, possible scapular fractures seen on CT, some concern for metastatic disease Plan: PSA pending Recommended the patient obtain age-related cancer screening in the outpatient setting for his multiple sclerotic lesions ICU Health maintenance: Mechanical ventilation: none Sedation: none FEN: progress as tolerated DVT ppx: SCDs GI ppx: protonix Johnson: yes IV lines: 2 Central line: none Arterial line: none Code status: FULL code Dispo: downgraded to telemetry Plan of care discussed with supervising attending Dr. Willie Michelle M.D. PGY-3
--- NOTE | 2024-11-04 14:43 | PC.SS ---
Rounding note: received MRI and echo, anticipate d/c tomorrow .
[2024-11-04] MEDS: ATORVASTATIN CALCIUM 20 MG TABLET PO (20:11)
[2024-11-05] VITALS (9 sets, daily range): BP systolic 134–158; BP diastolic 63–83; PULSE 74–96; RESP 14–23; TEMP 36.4–37; O2SAT 97; BMI 25.2
[2024-11-05] MEDS: hydrALAZINE HCL 25 MG TABLET 50 MG PO ×2 (05:35→13:48)
[2024-11-05 05:46] LABS: Basophils # (Auto) 0.1 Thou/mm3 (0.0-0.2); Basophils % (Auto) 1 % (0-2.5); Eosinophils # (Auto) 0.3 Thou/mm3 (0.0-0.5); Eosinophils % (Auto) 3 % (0-10); Hematocrit 40.6 % (41.0-53.0); Hemoglobin 13.6 g/dL (13.5-16.0); Immature Granulocytes % (Auto) 0 % (0-0); Immature Granulocytes Auto 0.02 Thou/mm3 (0.00-0.00); Lymphocytes # (Auto) 2.1 Thou/mm3 (1.0-4.8); Lymphocytes % (Auto) 24 % (10-50); Mean Corpuscular HGB Conc 33.5 g/dl (31.0-37.0); Mean Corpuscular Hemoglobin 28.6 pg (25.0-35.0); Mean Corpuscular Volume 86 fL (80-100); Monocytes # (Auto) 0.9 Thou/mm3 (0.0-0.8); Monocytes % (Auto) 11 % (0-12); Neutrophils # (Auto) 5.2 Thou/mm3 (1.8-7.7); Neutrophils % (Auto) 61 % (37-80); Nucleated Red Blood Cell % 0 /100 WBC (0); Platelet Count 256 Thou/mm3 (140-440); RDW Standard Deviation 42.6 fL (35.1-43.9); Red Blood Count 4.75 Miln/mm3 (4.50-5.90); White Blood Count 8.6 Thou/mm3 (3.8-10.6)
[2024-11-05 06:18] LABS: Alanine Aminotransferase 10 U/L (10-49); Albumin, Serum 4.4 gm/dL (3.4-4.8); Albumin/Globulin Ratio 1.6 (1.2-2.2); Alkaline Phosphatase 66 U/L (46-116); Anion Gap 11 (7-16); Aspartate Amino Transferase 19 U/L (0-34); BUN/Creatinine Ratio 11 Ratio (12-20); Bilirubin,Total 0.8 mg/dL (0.3-1.2); Blood Urea Nitrogen 13 mg/dL (9-23); Calcium 9.8 mg/dL (8.3-10.6); Calcium (Corrected) 9.8 mg/dL (8.5-10.1); Carbon Dioxide 22.8 mMol/L (20.0-31.0); Chloride 105 mMol/L (98-107); Creatinine (Component) 1.2 mg/dL (0.6-1.3); Estimated Creatinine Clearance 43.6 mL/min (>60); Globulin 2.7 gm/dL (2.3-3.5); Glucose 96 mg/dL (74-106); Osmolality,Calculated 277 (275-295); Potassium 3.8 mMol/L (3.4-5.1); Sodium 139 mMol/L (136-145); Total Protein 7.1 gm/dL (5.7-8.2); eGFR > 60 See Note
[2024-11-05] MEDS: PANTOPRAZOLE INJ 40 MG VIAL IVP (09:05)
[2024-11-05] MEDS: cefTRIAXone/D5w 1gm IV premix 50 ML IV (09:05)
[2024-11-05] MEDS: LOSARTAN POTASSIUM 25 MG TABLET 50 MG PO (09:05)
[2024-11-05] MEDS: ASPIRIN 81 MG CHEW PO (09:05)
[2024-11-05] MEDS: METOPROLOL SUCCINATE XL 25 MG TABCR 50 MG PO (09:06)
[2024-11-05] MEDS: amLODIPine BESYLATE 5 MG TABLET 10 MG PO (09:06)
[2024-11-05] MEDS: AZITHROMYCIN 250 MG TABLET 500 MG PO (09:07)
--- NOTE | 2024-11-05 10:18 | PC.NURSE ---
Notified Dr Stearns that patient was requesting the argueta catheter taken out. She will discuss with team and input orders.
--- NOTE | 2024-11-05 10:44 | PC.SS ---
SS follow up: met with patient to discuss the d/c plan. Patient is agreeable with home health for PT. Patient has no preferred HH agency. Patient will need a rollator walker. Patient's IMM rights reviewed. Patient's daughter in law at bed side to transport the patient home. Patient identified his son, Chuck Garcia Jr as his emergency contact.
--- NOTE | 2024-11-05 10:47 | PC.SS ---
Physical therapy informs, the patient will need a rollator walker. Walkers The diagnosis creates mobility limitation that significantly impairs ability to participate in the patients activities of daily living either in their entirety, or in a reasonable time frame. Also the patient is able to safely use the walker and the patient?s mobility is sufficiently resolved with the use of the walker and cane has been ruled out.
--- NOTE | 2024-11-05 10:57 | PC.SS ---
Addendum entered by LEDA Yi 11/05/24 11:10: [facility] in [place] booked. Confirmed with Catia at [facility]. [facility] to contact patient to provide DME. Original Note: DME inquiry was sent on [employer].
[2024-11-05] MEDS: INSULIN LISPRO (AdmeLOG) 1 UNIT/0.01 ML UNIT SC (11:21)
--- NOTE | 2024-11-05 13:41 | ESDS_ITS ---
<Statement entered by Diane Tapia MD - 11/09/24 14:18> I reviewed above note and agree with findings and plans. I have also personally examined the patient with medicine team and went over assessment and plan with medical team including corporate strategy intern and resident physician. Planned Discharge Date 11/05/24 DS: Providers Provider Date of admission: 11/02/24 20:27 Primary care physician: Madyson Gamboa MD Admitting Provider: Nacho Gómez MD Attending Provider on Admission: Diane Tapia MD Consults: 11/02/24 23:48 Referral Registered Dietitian Routine Comment: 11/03/24 11:45 Referral Physical Therapy Routine Comment: Physician Instructions: Referral Speech Therapy Routine Comment: 11/03/24 11:49 Consult to Neurology / Tele-Neurology Stat Comment: Consulting Provider: Dhruv Moreland Attending Provider on DC: Diane Tapia MD Discharging Provider: Kamran Garduno MD Anticipated date of discharge: 11/05/24 DS: Diagnosis Problem List Completed Was Problem List Reviewed/Reconciled?: Yes Hospital Course Hospital Course Hospital course: Mr. Harris is a 69-year-old male with past medical history of type 2 diabetes, hypertension, hyperlipidemia, Alzheimer's dementia who presented to [facility] with a chief complaint of altered mentation. Patient was brought in by ambulance following an episode at home where he was noted to be screaming in the restroom and encountered a fall and became obtunded at which point EMS found the patient obtunded and brought him to the emergency department. In the emergency department patient was intubated and admitted to the ICU for altered mentation and stroke alert was called. CT head on initial p resentation was negative and a CTA was ordered which revealed 30 to 50% stenosis of the right ICA, 10 to 30% stenosis of the left ICA, 50% stenosis of the left intracranial vertebral artery, and 80% stenosis of the right MULTIMEDIA ENGINEER. The following day patient was able to follow commands once he underwent a sedation holiday and was extubated. Patient did not have any residual deficits or focal neurological deficits. MRI was ordered for the patient which revealed chronic microvascular white matter changes and irregular tortuosity of cerebral vessels. Patient underwent a PT evaluation was recommended that he would benefit from a home health physical therapy. The initial source of his altered mentation remains unknown but on initial presentation patient had a hypertensive emergency with blood pressure noted to be 241/93 which may have been the initial source of his encephalopathy. Patient is being discharged on daily aspirin 81 mg, azithromycin 500 mg p.o. daily, cefpodoxime 200 mg p.o. twice daily, losartan 50 mg p.o. daily, metformin 500 mg p.o. twice daily. Patient is recommended to follow-up with PCP in regards to recent hospitalization. He is also recommended to obtain outpatient referral to nephrology for multicystic kidney and liver disease. Patient also recommended to undergo age-related screening with his primary care physician due to osteolytic lesions found in the thoracic vertebrae. PSA was ordered for the patient and results continue to remain pending and his primary care physician is recommended to follow-up with the hospital to obtain records and most recent lab results. Problem List: #Acute encephalopathy (resolved)- possible 2/2 HTN emergency, possible TIA #Stroke work up #Hypertensive emergency (controlled) #Community-acquired pneumonia # Mild bilateral basilar consolidation #Acute kidney injury (resolved) #Hx of T2DM (a1c 6.4% 07/2024)) #Osteopenic lesions throughout, possible scapular fractures seen on CT, some concern for metastatic disease Plan for discharge discussed with supervising attending Dr. Willie Garduno MD PGY-1 Status at Discharge Functional status at discharge: independent ambulation Overall status at discharge: patient is progressing back to baseline Time Spent with Patient Time attestation: Total time spent providing and/or coordinating discharge services: Time spent: Greater than 30 minutes Quality: Stroke Pt Provided Written Stroke Discharge Instructions: No Home Health Home Health Referral Orders: 11/05/24 10:07 Home Health Referral Routine Reason For Exam: PT Home-Bound The patient must either because of illness or injury, need the aid of supportive devices such as crutches, canes, wheelchairs, and walkers; the use of special transportation; or the assistance of another person in order to leave their place of residence; OR have a condition such that leaving his or her home is medically contraindicated. In addition, the patient also meets the following criteria: patient is normally unable to leave the home and leaving home requires considerable taxing effort. Addendum to Home Health Certification Practitioner's Certification: I certify that the patient has been under my care in the hospital and the care of attending physician (see below). We had a [id number] encounter on (see date below). My clinical findings indicate that the patient is home bound per the above criteria and the Home Health Services noted in these orders are medically necessary. The primary reason for the [id number] encounter is related to the fact that the patient requires home health services. Date Certifying [id number] Physician Encounter: 11/02/24 Physician's Name who will Assume Oversight for Services: Madyson Gamboa Physician's Phone No.who will Assume Oversight for Service: STAFF REPORTER - Community Resources: No PT to Evaluate: Yes PT to evaluate and provide a treatmnet plan to increase patient's mobility and strength. Wound Care: No IV Therapy: No RN Safety Evaluation: Yes RN to evaluate and create a plan of care that will produce positive outcomes. Palliative Treatment: No Palliative treatment and evaluate the need for hospice. Home Health Aide - Personal Care: No Home Health Aide to assist with any ADL's. Exam Vital Signs Temp Pulse Resp BP Pulse Ox O2 Del Method O2 Flow Rate 97.6 F 74 18 158/83 H 97 Room Air 2 11/05/24 12:00 11/05/24 12:00 11/05/24 12:00 11/05/24 12:00 11/05/24 12:00 11/05/24 12:00 11/03/24 09:30 FiO2 45 11/03/24 08:00 Discharge Plan Plan Patient Disposition: Home w/HOME HEALTH Care Plan Goals: Patient is recommended to follow-up with PCP within 1 week in regards to recent hospitalization Recommend continuing antibiotic azithromycin and cefpodoxime for 5 more days for treatment of pneumonia. Patient is also recommended to follow-up with nephrology due to CT findings of multicystic kidney and liver disease. Patient is also recommended to follow-up with PCP in regards to age-related cancer screening due to osteolytic lesions found in the thoracic vertebrae. PSA remains pending and patient's primary care physician can follow-up with [facility] for those results. Patient will be sent home on amlodipine 10 mg p.o. daily, aspirin 81 mg, Clonidine 0.1 mg p.o. twice daily Hydralazine 50 mg 3 times daily Losartan 50 mg p.o. daily Metoprolol succinate 50 mg p.o. twice daily Patient is also recommended to reconcile with primary care physician to obtain outpatient referral for cardiology due to high amounts of antihypertensive medication patient will benefit from a cardiac workup. Also recommend following up with your primary care physician regarding diabetes, we have prescribed metformin 500 mg twice daily on discharge, recommend following up with repeat kidney function test within 1 to 2 weeks following discharge on a repeat appointment with your primary care physician. Prescriptions/Referrals Prescriptions/Med Rec: New aspirin [Children's Aspirin] 81 mg Tablet,Chewable 81 mg PO QDAY 14 Days Qty: 14 0RF azithromycin 500 mg tablet 500 mg PO QDAY 5 Days Qty: 5 0RF losartan 50 mg tablet 50 mg PO QDAY Qty: 14 0RF cefpodoxime 200 mg tablet 200 mg PO BID 5 Days Qty: 10 0RF Rx Instructions: must administer with a meal/food metformin 500 mg tablet 500 mg PO BIDWMEAL 14 Days Qty: 28 0RF Continued meloxicam 15 mg tablet 7.5 mg PO BID rosuvastatin 5 mg tablet 40 mg PO DAILY metoprolol succinate 50 mg Tablet Extended Release 24 Hr 50 mg PO BID amlodipine 10 mg tablet 10 mg PO QDAY clonidine HCl 0.1 mg Tablet 0.1 mg PO BID pantoprazole 40 mg Tablet,Delayed Release (Dr/Ec) 40 mg PO QDAY hydralazine 50 mg Tablet 50 mg PO QDAY oxybutynin chloride 5 mg Tablet 5 mg PO BID Referrals: Madyson Gamboa MD [Primary Care Provider] - Patient/Caregiver Discharge Instructions Print Language: Cape Verdean Stand Alone Forms: Marisol Award Info., Patient Portal Info Letter Discharge Order Discharge Orders: Discharge (Routine); Ordered 11/05/24 Ordered By: Joana Michelle Quality Discharge Quality Measures VTE prophylaxis
--- NOTE | 2024-11-05 18:10 | PC.NURSE ---
Patient voided post urinary catheter removal with no issues.
--- NOTE | 2024-11-06 14:03 | PC.CM ---
Patient did not have a preference so I faxed to [facility]. Pending acceptance.
[2024-11-06 17:52] LABS: PSA, Free 0.46 ng/mL
--- NOTE | 2024-11-08 08:09 | PC.CC ---
Pt is accepted to [facility] and SOC is 11/08/24
== END 2024-11-05 18:08 | disposition home health service (06) | DRG 304 ==
LOC: SERX 20:00 → SERHOLD 20:50 → S2SX 22:49 → S2NX 11-04 10:06
PROVIDERS: Emergency Medicine; Registered Nurse General Practice; Student in an Organized Health Care Education/Training Program; Admitting Provider Internal Medicine; Emergency Provider Emergency Medicine; PCP Internal Medicine; Visit Provider Internal Medicine
DX: I16.1 Hypertensive emergency (principal); J18.9 Pneumonia, unspecified organism; J96.00 Acute respiratory failure, unspecified whether with hypoxia or hypercapnia; G93.40 Encephalopathy, unspecified; N17.9 Acute kidney failure, unspecified; I10 Essential (primary) hypertension; E11.9 Type 2 diabetes mellitus without complications; G30.9 Alzheimer's disease, unspecified; E78.5 Hyperlipidemia, unspecified; I65.23 Occlusion and stenosis of bilateral carotid arteries; I66.21 Occlusion and stenosis of right posterior cerebral artery
CPT/HCPCS: 36415; 36600; 70450; 70496; 70498; 70544; 71045; 71260; 74177; 80053; 80061; 80307; 80320; 81001; 82803; 83036; 84153; 84154; 85025; 85610; 85730; 87081; 87086; 87205; 87400; 87811; 92526; 92610; 93005; 93306; 94002; 94003; 96365; 96367; 97162; 99291; 99292; A4649; J0360; J0456; J0696; J1815; J2250; J2251; J2404; J2470; J2543; J2704; J3010; J3370; J3480; J3490; J7050; Q0164; Q9967; A9270; G0480

== ENCOUNTER → 2024-11-16 | Outpatient (CLI) | payer MEDICARE, MEDICAID, SELFPAY ==
--- NOTE | 2024-11-16 | XR_ITS ---
Examination: PA lateral chest 2 views TECHNIQUE: Upright PA lateral chest 2 views Exam date and time: November 16, 2024 0740 hours Comparison November 03, 2024 INDICATIONS: History hypoxic respiratory failure postintubation November 03, 2024 FINDINGS: The patient has been extubated Minor prominence left ventricle No pneumonia or pulmonary edema Moderate osteopenia IMPRESSION: No active disease
[2024-11-16 09:43] LABS: Glucose Estimated Average 146 mg/dL (80-131); Hemoglobin A1C 6.7 % Hgb (4.8-6.0)
[2024-11-16 09:53] LABS: Creatinine MALB Rnd Ur 171 mg/dL (30-125); Microalbumin Creat Ratio 51 mg/gCrea (<30); Microalbumin, Random Urine 87 mg/L (0-300)
[2024-11-16 09:54] LABS: Alanine Aminotransferase 24 U/L (10-49); Albumin, Serum 4.8 gm/dL (3.4-4.8); Albumin/Globulin Ratio 1.9 (1.2-2.2); Alkaline Phosphatase 70 U/L (46-116); Anion Gap 9 (7-16); Aspartate Amino Transferase 22 U/L (0-34); BUN/Creatinine Ratio 9 Ratio (12-20); Bilirubin,Total 0.7 mg/dL (0.3-1.2); Blood Urea Nitrogen 11 mg/dL (9-23); Calcium 10.1 mg/dL (8.3-10.6); Calcium (Corrected) 10.1 mg/dL (8.5-10.1); Carbon Dioxide 26.8 mMol/L (20.0-31.0); Cardiac Risk Estimate 2.1 RATIO (4.0-6.7); Chloride 103 mMol/L (98-107); Cholesterol 119 mg/dL (132-200); Creatinine (Component) 1.2 mg/dL (0.6-1.3); Globulin 2.5 gm/dL (2.3-3.5); Glucose 108 mg/dL (74-106); HDL Cholesterol 56 mg/dL (40-60); LDL Cholesterol,Calculated 42 mg/dL (0-130); Osmolality,Calculated 277 (275-295); Potassium 3.7 mMol/L (3.4-5.1); Sodium 139 mMol/L (136-145); Total Protein 7.3 gm/dL (5.7-8.2); Triglycerides 106 mg/dL (30-150); eGFR > 60 See Note
== END | disposition home or self-care (01) ==
PROVIDERS: PCP Internal Medicine; Referring Provider Internal Medicine; Visit Provider Internal Medicine
DX: Z87.09 Personal history of other diseases of the respiratory system (principal); Z00.00 Encounter for general adult medical examination without abnormal findings; E11.65 Type 2 diabetes mellitus with hyperglycemia; I10 Essential (primary) hypertension; E78.2 Mixed hyperlipidemia
CPT/HCPCS: 36415; 71046; 80053; 80061; 82043; 82570; 83036

== ENCOUNTER → 2025-02-08 | Outpatient (CLI) | payer MEDICARE, MEDICAID, SELFPAY ==
[2025-02-08 10:59] LABS: Glucose Estimated Average 137 mg/dL (80-131); Hemoglobin A1C 6.4 % Hgb (4.8-6.0)
[2025-02-08 12:00] LABS: Creatinine MALB Rnd Ur 54 mg/dL (30-125); Microalbumin Creat Ratio 198 mg/gCrea (<30); Microalbumin, Random Urine 107 mg/L (0-300)
== END | disposition home or self-care (01) ==
LOC: COPL 10:00
PROVIDERS: PCP Internal Medicine; Referring Provider Internal Medicine; Visit Provider Internal Medicine
DX: E11.65 Type 2 diabetes mellitus with hyperglycemia (principal)
CPT/HCPCS: 36415; 82043; 82570; 83036

== ENCOUNTER → 2025-02-10 | Outpatient (CLI) | payer MEDICARE, MEDICAID, SELFPAY ==
[2025-02-10 10:17] LABS: OBS Performed By LAB; OBS QC OK? Yes
[2025-02-10 14:51] LABS: Occult Blood, Stool Negative (Negative); Occult Blood, Stool #2 Negative (Negative); Occult Blood, Stool #3 Negative (Negative)
[2025-02-10 14:52] LABS: OBS Card Expiration Date 1-24 551749; OBS Developer Expiration Date 123126; OBS Developer Lot # 1-24 551749
== END | disposition home or self-care (01) ==
LOC: SLDO 10:02
PROVIDERS: PCP Internal Medicine; Referring Provider Internal Medicine; Visit Provider Internal Medicine
DX: E11.65 Type 2 diabetes mellitus with hyperglycemia (principal)
CPT/HCPCS: 82270

== ENCOUNTER → 2025-05-10 | Outpatient (CLI) | payer MEDICARE, MEDICAID, SELFPAY ==
[2025-05-10 08:53] LABS: Glucose Estimated Average 146 mg/dL (80-131); Hemoglobin A1C 6.7 % Hgb (4.8-6.0)
[2025-05-10 08:55] LABS: Alanine Aminotransferase 25 U/L (10-49); Albumin, Serum 4.5 gm/dL (3.4-4.8); Albumin/Globulin Ratio 1.5 (1.2-2.2); Alkaline Phosphatase 70 U/L (46-116); Anion Gap 10 (7-16); Aspartate Amino Transferase 27 U/L (0-34); BUN/Creatinine Ratio 6 Ratio (12-20); Bilirubin,Total 1.3 mg/dL (0.3-1.2); Blood Urea Nitrogen 8 mg/dL (9-23); Calcium 9.6 mg/dL (8.3-10.6); Calcium (Corrected) 9.6 mg/dL (8.5-10.1); Carbon Dioxide 26.7 mMol/L (20.0-31.0); Cardiac Risk Estimate 3.1 RATIO (4.0-6.7); Chloride 106 mMol/L (98-107); Cholesterol 171 mg/dL (132-200); Creatinine (Component) 1.3 mg/dL (0.6-1.3); Globulin 3.0 gm/dL (2.3-3.5); Glucose 149 mg/dL (74-106); HDL Cholesterol 55 mg/dL (40-60); LDL Cholesterol,Calculated 95 mg/dL (0-130); Osmolality,Calculated 286 (275-295); Potassium 3.9 mMol/L (3.4-5.1); Sodium 143 mMol/L (136-145); Total Protein 7.5 gm/dL (5.7-8.2); Triglycerides 104 mg/dL (30-150); eGFR 58 See Note
== END | disposition home or self-care (01) ==
LOC: COPL 06:36
PROVIDERS: PCP Internal Medicine; Referring Provider Internal Medicine; Visit Provider Internal Medicine
DX: I10 Essential (primary) hypertension (principal)
CPT/HCPCS: 36415; 80053; 80061; 83036